=== PATIENT | female | born 1955 | race Caucasian/White ===

== ENCOUNTER 2019-12-21 11:00 | Outpatient (RCR) | payer MEDICARE, SELFPAY ==
--- NOTE | 2019-11-09 11:09 | PTOPEVAL ---
PHYSICAL THERAPY EVALUATION AND PLAN OF CARE 11-09-2019 The PT evaluation was completed today, for the diagnosis of L TKR. Her plan of treatment is 2-3 x/week for 4 weeks. Thank you for referring Sera to [facility]. Please review, sign, date and return this plan of care SOLO. I agree with and certify that the following plan of care is medically necessary. Referring Physician Date Attending Provider: Dr. Edgar Ames *PT Outpatient Evaluation Start: 11/09/19 10:00 Document 11/09/19 09:55 TARA (Rec: 11/09/19 11:09 TARA [email or web address]) Outpatient Past Medical History Neurological History Hx Neurological Disorders No Significant History Cardiovascular History Hx Hypertension Yes: control with meds Respiratory History Hx Asthma Yes Hx Chronic Obstructive Pulmonary Disease Yes (COPD) Hx Pneumonia Yes Hx Other Respiratory Disorders Yes: Former smoker Gastrointestinal History Hx Gastroesophageal Reflux Disease Yes Genitourinary History Hx Genitourinary Disorders No Significant History Musculoskeletal History Hx Joint Replacement Yes: L TKR 10-21-19 Hx Other Musculoskeletal Disorders Yes: B feet/toe surgery Hematological History Hx Hematological Disorders No Significant History Endocrine History Hx Endocrine Disorders No Significant History HEENT History Hx Other HEENT Disorders Yes: 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 Integumentary History Hx Skin Disorders No Significant History Other History Hx Other Medical Conditions Yes: obesity Hx Other Surgeries Yes: kidney stones surgical removal Evaluation Information Problem Diagnosis L TKR Onset 10-21-19 Previous Treatments Previous Treatments For This Problem Home health PT, 3 sessions- completed ~ Nov 03; Prior Level of Function Activity Level (Last 3 Months) Occupation retired Activity of Daily Living Ability Independent Indoor/Home Mobility Independent Community Mobility Independent Stairs Ability Independent Functional Cognition (Planning, Shopping Independent , Taking Medications) Cooking Yes Cleaning Yes Laundry Yes Shopping Yes Driving Yes Home Setting Home Type Multiple Levels Environmental Barriers Stairs, Greater than 4 Living Situation With Spouse Mobility Assistive Devices (Used Last 3 None,Cane,Walker, Wheeled Months) Bathroom Environment Bathtub, Standard Comments Additional Prior Level of Function
--- NOTE | 2019-11-24 09:50 | PCPTNOTE ---
Patient called & cancelled scheduled appointment this date no reason given
--- NOTE | 2019-11-29 13:09 | PTOPEVAL ---
PHYSICAL THERAPY RE-EVALUATION AND UPDATED PLAN OF CARE 11-29-2019 Mrs. Lawrence has received 6 Physical Therapy sessions, from November 09 to today, for the diagnosis of s/p L TKR. She has improved in all areas: increased knee ROM, strength, gait, stair ability; decreased circumferential measurements of knee and progression of exercises at home. Pain rating is the same as initial eval. To continue with PT treatments, 2x/week for 3 weeks, to further increase strength and ROM, with progression of HEP and prepare for discharge. Thank you for referring Sera to [facility]. Please review, sign, date and return this plan of care SOLO. I agree with and certify that the following plan of care is medically necessary. Referring Physician Date Referring Provider: Dr. Edgar Ames *PT Outpatient Re-Evaluation Document 11/29/19 12:39 TARA (Rec: 11/29/19 13:09 TARA [email or web address]) Therapy Assessment Status Assessment Status Problem Subjective Information Sera reports: has been Query Text:As Reported By Patient/ shopping, going out and doing Family more; have over done it a few times, knee hurt more because did too much; more pain at end of day and doing her exercises at home. Pain Assessment Timing of Pain Assessment Timing of Pain Assessment Assessment Pain Scale Pain Scale Used Numeric (1 - 10) Self Report Pain Assessment Left Knee(s) Reported Pain Level 3 Pain Description Aching,Sharp,Tightness Pain Frequency Acute Other Pain Description swollen Current Pain Intensity 3 Lowest Pain Intensity 2 Greatest Pain Intensity 5 Pain Aggravating Factors Exercise/Activity,Weight Bearing/Standing Other Pain Aggravating Factors walk about one hour Other Alleviating Interventions taking meloxicam once/day Pain Score Pain Score 3: Self Report Lower Extremity Range of Motion Knee Range of Motion Left Knee Flexion Range of Motion - Active 100 Knee Flexion Range of Motion - Passive 105 Knee Extension Range of Motion - Active 5 Query Text: Knee Extension Range of Motion - Passive 0 Knee Range of Motion Comments flexion in sitting/ extension in supine Lower Extremity Muscle Strength Testing General Lower Extremity Strength Gross Lower Extremity Strength recumbant bicycle, level 2 resistance, 6 minutes; SLS L x 3 seconds; supine 3# wt: SLR x 20 reps; hip abduct 20 reps; Extremity Circumference Assessment Circumference Assessment Location Left Body Part Knee Site Descriptor ([place]) patella: superior 49.5 cm/ mid
--- NOTE | 2019-12-07 09:53 | PCPTNOTE ---
Patient called & cancelled scheduled appointment this date due to weather.
--- NOTE | 2019-12-21 11:38 | PTOPEVAL ---
PHYSICAL THERAPY DISCHARGE 12-21-2019 Mrs. Lawrence has received 12 Physical Therapy sessions, from November 09 to today, s/p L TKR. She has improved with the ROM and strength of her L knee; walking pattern, stair ability and home exercise progression. The circumferential measurements of her knee are within 1 cm of measurements at the last reevaluation. The PT goals have been achieved, therefore, she will be discharged at this time. Thank you for referring Sera to [facility]. Please review, sign, date and return this discharge SOLO. I agree with and certify that the following plan of care is medically necessary. Referring Physician Date Referring Provider: Dr. Edgar Ames *PT Outpatient Discharge report Document 12/21/19 11:00 TARA (Rec: 12/21/19 11:33 TARA [email or web address]) Subjective Information Sera reports: knee is doing Query Text:As Reported By Patient/ good; only have pain when Family weather is rainy; doing all exercises at home; not using cane anymore; back to doing everything; some swelling in knee after walking 1-2 hours; and agrees to discharge from PT today. Pain Assessment Timing of Pain Assessment Timing of Pain Assessment Assessment Pain Scale Pain Scale Used Numeric (1 - 10) Self Report Pain Assessment Left Knee(s) Reported Pain Level 0 Additional Pain Comments not taking any pain meds; swelling after walking,but goes away with ice,rest Pain Score Pain Score 0: Self Report Lower Extremity Range of Motion Knee Range of Motion Left Knee Flexion Range of Motion - Active 105 Knee Extension Range of Motion - Active 0 Query Text: Lower Extremity Muscle Strength Testing General Lower Extremity Strength Gross Lower Extremity Strength -recumbant bicycle level 2 resistance for 5 min warm up -standing L: 3# ankle wt: hip abduct x 30 reps;knee flexion x25 reps; -SLS x 4 seconds; -supine 3# ankle wt: SLR x 20 reps; -HEP reviewed and upgraded: jacoby theraband for standing exer Extremity Circumference Assessment Circumference Assessment Location Left Body Part Knee Circumference Comments superior patella 49 cm; mid patella 47.5 cm and inferior patella 39 cm Transfer Assessment Chair Transfer Assessment Ambulation Assistive Devices None Sit to Stand Chair Transfer Ability Independent Stand to Sit Chair Transfer A
== END 2019-12-22 09:31 | disposition home or self-care (01) ==
LOC: ANHPT 11:00
DX: Z47.1 Aftercare following joint replacement surgery (principal); Z96.652 Presence of left artificial knee joint
CPT/HCPCS: 29581; 97016; 97022; 97110; 97140; 97161

== ENCOUNTER 2020-01-20 13:42 | Outpatient (RCR) | payer MEDICARE, SELFPAY ==
--- NOTE | 2020-01-20 14:36 | PTOPEVAL ---
PHYSICAL THERAPY EVALUATION/DISCHARGE 01-20-2020 The PT evaluation was completed today for the diagnosis of s/p L TKR. Mrs. Lawrence was here for PT services and was discharged about one month ago. She has continued to perform her home exercises and has increased her activity level. Sera reports that she is independent with all of her home and self care activities. She was not able to identify any problems with her mobility or anything that she is not able to do. The order states knee ROM of 0' to 120'. Her L knee active ROM in sitting is 0'- 105'. She is fully functioning with this range and does not state any concerns or problems. Discussed with her continuing her home exercise program, stretching her knee flexion in sitting and supine positions. Thank you for referring Mrs. Lawrence to [facility]. Please review, sign, date and return this evaluation/discharge SOLO. I agree with and certify that the following plan of care is medically necessary. Referring Physician Date Attending Provider: Dr. Edgar Ames *PT Outpatient Evaluation Document 01/20/20 14:10 TARA (Rec: 01/20/20 14:32 TARA [email or web address]) Outpatient Past Medical History Neurological History Hx Neurological Disorders No Significant History Cardiovascular History Hx Hypertension Yes: control with meds Respiratory History Hx Asthma Yes Hx Chronic Obstructive Pulmonary Disease Yes (COPD) Hx Pneumonia Yes Hx Other Respiratory Disorders Yes: Former smoker Gastrointestinal History Hx Gastroesophageal Reflux Disease Yes Genitourinary History Hx Genitourinary Disorders No Significant History Musculoskeletal History Hx Joint Replacement Yes: L TKR 10-21-19 Hx Other Musculoskeletal Disorders Yes: B feet/toe surgery Hematological History Hx Hematological Disorders No Significant History Endocrine History Hx Endocrine Disorders No Significant History HEENT History Hx Other HEENT Disorders Yes: 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 Integumentary History Hx Skin Disorders No Significant History Other History Hx Other Medical Conditions Yes: obesity Hx Other Surgeries Yes: kidney stones surgical removal Evaluation Information Problem Diagnosis s/p L TKR Onset 10-21-19 Subjective Information per order: knee flexion 120'; Query Text:As Reported By Patient/ Family Previous Treatments Previous Treatments For This Problem completed PT at this facility, with discharge 2-20-20 Prior Level of Function Activity Level (Last 3 Months) Occupation retired Activity of Daily Living Ability Independent Indoor/Home Mobility Independent Community Mobility Independent Stairs Ability Independent Functional Cognition (Planning, Shopping Independent , T
== END 2020-01-23 08:30 | disposition home or self-care (01) ==
LOC: ANHPT 13:42
PROVIDERS: PCP Nurse Practitioner Adult Health; Visit Provider Nurse Practitioner Adult Health
DX: Z47.1 Aftercare following joint replacement surgery (principal); Z96.652 Presence of left artificial knee joint
CPT/HCPCS: 97161

== ENCOUNTER 2021-05-19 14:38 | Emergency (ER) | payer MEDICARE, SELFPAY ==
[2021-05-19 14:49] VITALS: BP 119/73; PULSE 82; RESP 16; TEMP 36.9; O2SAT 98
--- NOTE | 2021-05-19 15:18 | ED.PEDHENT ---
HPI - Pediatric HENT General Chief complaint: Upper Respiratory Infection Stated complaint: sore throat Source: patient and RN notes reviewed Limitations: no limitations History of Present Illness HPI Narrative: The vaccinated overweight patient, ex-smoker/nondrinker on several medications, presents with nasal pain. Patient states she has 'possible sinusitis' manifested by half week history frontal/sinus headache, and definite right nasal tenderness and asociated scant swelling. No fever, tooth ache, diplopia, discharge, hypesthesia/numbness, visible rash; symptoms are mild, worse with direct palpation including touching her right nose internally. Family members have a history of facial impetigo; she is advised go to [facility] if not improved Related Data Home Medications Medication Instructions Recorded Confirmed alprazolam 09/28/19 05/08/21 escitalopram oxalate mg 09/28/19 05/08/21 losartan 09/28/19 05/08/21 fluticasone propion-salmeterol INHALATION 05/19/21 [Wixela Inhub] nystatin TOPICAL 05/19/21 omeprazole 05/19/21 Allergies Allergy/AdvReac Type Severity Reaction Status Date / Time Aminoglycosides Allergy Severe SWELLING Verified 05/08/21 10:21 AND BLISTERS neomycin Allergy Severe SWELLING Verified 05/08/21 10:21 AND BLISTERS bacitracin Allergy Unknown Unknown Verified 05/08/21 10:21 enalapril Allergy Unknown Unknown Verified 05/08/21 10:21 hydrocortisone Allergy Unknown Unknown Verified 05/08/21 10:21 lisinopril Allergy Unknown Unknown Verified 05/08/21 10:21 polymyxin B Allergy Unknown Unknown Verified 05/08/21 10:21 trazodone Allergy Unknown Unknown Verified 05/08/21 10:21 venlafaxine Allergy Unknown Unknown Verified 05/08/21 10:21 vilazodone Allergy Unknown Unknown Verified 05/08/21 10:21 Pediatric Review of Systems Review of Systems: General/Constitutional: No weight loss,fever Eyes: N0: Redness,discharge Ears/Nose/Throat: No: Epistaxis,ear discharge Respiratory: Denies: Hemoptysis Gastrointestinal: No Vomiting, Bleeding-rectal Skin: No Lumps, eruption Neurologic: No Focal Weakness,Sz Hematologic: Denies: Petechiae/Purpura Psychiatric: No: Suicida ideationl All Other Systems: Reviewed and Negative PMF Past Medical History Medical History Asthma Essential hypertension Former smoker Patient quit 35 years ago. She smoked for 10 years 1 pack per day History of asthma History of cataract Hypertension Rhinitis Seasonal allergic rhinitis Sleep disturbance Snoring Surgical History Surgical History History of knee surgery Family History Family History Father Diabetes mellitus Patient's father is in good health Sibling Malignant neoplasm of prostate, Onset Age: 65 Mother Family history of lung cancer, Onset Age: 54 Social History Social History Smoking packs per day: 0.5 Smoking cigarettes per day: 10.0 Years smoked: 7 Smoking pack-years: 3.50 Smoking status: Former smoker Tobacco type: cigarettes Second hand tobacco smoke exposure: No Smoking end date: 11/02/82 Additional smoking assessment comments: started smoking at age 14 Alcohol intake: never Comments At time of signature, agree with nursing past medical, surgical, social and family history. There is no relevant family history pertinent to the presenting complaint Pediatric Exam Narrative: Physical exam: General Appearance: Well appearing, obese/well nourished, EYE: PERRLA, EOMI Ears: External ear normal, Auditory canal normal Nose: Slightly asymmetric/swollen right nose , Nares clear-no vesicles, discharge, etc. Mouth/Throat: Normal appearing, Normal lips Neck: Supple, No adenopathy Respiratory: Airway patent, No respiratory distress Ski
== END 2021-05-19 15:27 | disposition home or self-care (01) ==
PROVIDERS: Emergency Provider Emergency Medicine; PCP Nurse Practitioner Adult Health
DX: J32.9 Chronic sinusitis, unspecified (principal); Z87.891 Personal history of nicotine dependence; J45.909 Unspecified asthma, uncomplicated; H26.9 Unspecified cataract
CPT/HCPCS: 99213; G0463

== ENCOUNTER 2021-06-05 09:45 | Outpatient (CLI) | payer MEDICARE, SELFPAY ==
--- NOTE | ~2021-06-05 | US_ITS ---
EXAMINATION: US venous doppler LE RT DATE: 06/05/2021 10:20 INDICATION: Right lower limb pain. TECHNIQUE: Grayscale ultrasound images without and with compression and Doppler ultrasound images of the right lower extremity veins were obtained. COMPARISON: None. FINDINGS: The visualized portions of right common femoral vein, profunda (deep) femoral vein, femoral vein, pop liteal vein, peroneal trunk, posterior tibial veins, peroneal veins, gastrocnemius vein and greater s aphenous vein outflow are patent. No abnormal masses or fluid collections identified at the site of a reported dog bite. IMPRESSION: 1. No deep venous thrombosis in the right lower limb. 2. No fluid collections at the site of the reported dogbite to suggest hematoma or abscess. Reviewed, dictated and finalized at location A.
== END 2021-06-05 09:46 | disposition home or self-care (01) ==
PROVIDERS: PCP Nurse Practitioner Adult Health; Visit Provider Nurse Practitioner Adult Health
DX: M79.661 Pain in right lower leg (principal)
CPT/HCPCS: 93971

== ENCOUNTER → 2021-10-29 11:40 | Outpatient (CLI) | payer MEDICARE, SELFPAY ==
--- NOTE | ~2021-10-29 | CT_ITS ---
EXAMINATION: CT sinus wo con DATE: 10/29/2021 11:53 INDICATION: Chronic sinusitis TECHNIQUE: Computed tomography (CT) of the paranasal sinuses was performed without intravenous contra st. The dose-length product (DLP) was 254.35 mGy-cm. Iterative reconstruction was used. COMPARISON: None FINDINGS: There is normal development and pneumatization of the paranasal sinuses. The frontal, sphen oid, ethmoid, and maxillary sinuses are clear. The bilateral ostiomeatal complexes are patent. Visual ized soft tissues are unremarkable. There is frontal skull hyperostosis (hyperostosis frontalis inter na), a normal variant. IMPRESSION: 1. Unremarkable sinuses. Reviewed, dictated and finalized at location F. IFF OFFICER IMPRESSION: 1. Unremarkable sinuses.
== END ==
PROVIDERS: PCP Nurse Practitioner Adult Health; Visit Provider Otolaryngology
DX: J32.9 Chronic sinusitis, unspecified (principal); M85.2 Hyperostosis of skull
CPT/HCPCS: 70486

== ENCOUNTER 2021-12-07 14:47 | Emergency (ER) | payer MEDICARE, SELFPAY ==
--- NOTE | ~2021-12-07 | XR_ITS ---
EXAMINATION: XR wrist RT min 3V EXAM DATE: 12/07/2021 15:02 INDICATION: fall, rt wrist pain, medial side pain . TECHNIQUE: Right wrist frontal, frontal with ulnar deviation, oblique and lateral projections obtain ed and reviewed. There is no prior study for comparison. FINDINGS: Right wrist scapholunate joint space is maintained. There are no acute fractures or disloca tions identified. There is no subcutaneous gas. The soft tissue is unremarkable. There are no rad iopaque foreign bodies. There is moderate 1st carpometacarpal joint primary osteoarthritis. IMPRESSION: 1. XR wrist RT min 3V exam without acute osseous findings. Reviewed, dictated and finalized at location G. ULA CHECKER
--- NOTE | 2021-12-07 14:50 | ED.UPPEXIN ---
HPI - Extremity Injury (Upper) General Chief Complaint: Extremity Injury, Upper Stated Complaint: Right Wrist Pain Time Seen by Provider: 12/07/21 14:56 Source: patient, family, RN notes reviewed and old records reviewed Mode of arrival: ambulatory Limitations: no limitations History of Present Illness HPI narrative: 66-year-old female presents to the [facility] with right ulnar aspect wrist pain for approximately 1 week. Patient states that she was in the basement and fell. Thinks she stretched out her arm. Minor swelling noted no bruising. Tender along the distal aspect of the ulnar. Capillary refill distal to injury under 2 seconds. Sensation intact. Does have full range of motion. Strong core cutter and reamer noted. Denies hitting head. no loss of consciousness. Denies back pain. MD complaint: injury to: right and wrist Related Data Home Medications Medication Instructions Recorded Confirmed alprazolam 09/28/19 11/22/21 escitalopram oxalate mg 09/28/19 11/22/21 losartan 09/28/19 11/22/21 omeprazole 05/19/21 11/22/21 phentermine mg 12/07/21 Allergies Allergy/AdvReac Type Severity Reaction Status Date / Time Aminoglycosides Allergy Severe SWELLING Verified 12/07/21 14:55 AND BLISTERS neomycin Allergy Severe SWELLING Verified 12/07/21 14:55 AND BLISTERS bacitracin Allergy Unknown Unknown Verified 12/07/21 14:55 enalapril Allergy Unknown Unknown Verified 12/07/21 14:55 hydrocortisone Allergy Unknown Unknown Verified 12/07/21 14:55 lisinopril Allergy Unknown Unknown Verified 12/07/21 14:55 polymyxin B Allergy Unknown Unknown Verified 12/07/21 14:55 trazodone Allergy Unknown Unknown Verified 12/07/21 14:55 venlafaxine Allergy Unknown Unknown Verified 12/07/21 14:55 vilazodone Allergy Unknown Unknown Verified 12/07/21 14:55 Review of Systems Review of Systems: All systems reviewed & are unremarkable except as noted in HPI and below Constitutional: Constitutional: Reports no additional constitutional complaints, Denies chills, Denies fever(s), Denies headache(s) and Denies weakness Eyes: Eyes: Reports no additional eye complaints ENT: Reports system reviewed and no additional complaints, except as documented, Denies vertigo, Denies dizziness and Denies headache(s) Cardiovascular: Cardiovascular: Reports no additional cardiovascular complaints, Denies chest pain, Denies syncope and Denies dyspnea Respiratory: Respiratory: Reports no additional respiratory complaints, Denies cough and Denies dyspnea Gastrointestinal: Gastrointestinal: Reports no additional gastrointestinal complaints, Denies abdominal pain, Denies nausea and Denies vomiting Musculoskeletal: Musculoskeletal: Reports as per HPI, Reports arthralgias (Right wrist), Denies joint swelling and Denies numbness Integumentary/Breasts: Skin/Breast: Reports system reviewed and no additional complaints, except as docu Neurologic: Reports system reviewed and no additional complaints, except as documented, Denies confusion, Denies vertigo, Denies dizziness, Denies syncope, Denies headache(s), Denies focal weakness, Denies numbness and Denies weakness Psychiatric: Psychiatric: Reports no additional psychiatric complaints and Denies confusion Allergic/Immunologic: Allergic/Immunologic: Reports no additional allergic/immunologic complaints PMFSH Past Medical History Medical History Asthma Essential hypertension Former smoker Patient quit 35 years ago. She smoked for 10 years 1 pack per day History of asthma History of cataract Hypertension Rhinitis Seasonal allergic rhinitis Sleep disturbance Snoring Surgical History Surgical History History of knee surgery Family History Family History Father Diabetes mellitus Patient's father is in good health Sibling Malignant neoplasm of prostate, Onset Age:
[2021-12-07 14:59] VITALS: BP 132/82; PULSE 84; RESP 18; TEMP 36.6; O2SAT 98
== END 2021-12-07 15:18 | disposition home or self-care (01) ==
PROVIDERS: Emergency Provider Nurse Practitioner; PCP Nurse Practitioner Adult Health
DX: S63.501A Unspecified sprain of right wrist, initial encounter (principal); W19.XXXA Unspecified fall, initial encounter; M18.11 Unilateral primary osteoarthritis of first carpometacarpal joint, right hand; Z87.891 Personal history of nicotine dependence; J45.909 Unspecified asthma, uncomplicated; I10 Essential (primary) hypertension; H26.9 Unspecified cataract
CPT/HCPCS: 73110; 99213; G0463

== ENCOUNTER 2022-08-07 10:45 | Emergency (ER) | payer MEDICARE, SELFPAY ==
--- NOTE | 2022-08-07 10:51 | ED.GENADULT ---
HPI - General Adult General Chief complaint: Upper Respiratory Infection Stated complaint: Headache,Eyes Irritation, Multiple Complaints Time Seen by Provider: 08/07/22 10:55 Source: patient, RN notes reviewed and old records reviewed Mode of arrival: ambulatory Limitations: no limitations History of Present Illness HPI narrative: 67-year-old female presents to the [facility] with multiple complaints. Patient is complaining of eye and sinus pressure. Frontal headache. Patient states they all started on Thursday, 3 days ago. Has tried Coricidin with no improvement. MD complaint: sinus pain Related Data Home Medications Medication Instructions Recorded Confirmed alprazolam 0.25 mg tablet 0.25 mg PO DIRECTED 09/28/19 08/07/22 escitalopram oxalate 10 mg tablet 10 mg PO DAILY 09/28/19 08/07/22 losartan 50 mg tablet 50 mg PO DAILY 09/28/19 08/07/22 omeprazole 40 mg capsule,delayed 40 mg PO DAILY 05/19/21 08/07/22 release ipratropium 0.5 mg-albuterol 3 mg 3 ml inhalation QID PRN Dyspnea 05/23/22 08/07/22 (2.5 mg base)/3 mL nebulization soln Allergies Allergy/AdvReac Type Severity Reaction Status Date / Time Aminoglycosides Allergy Severe SWELLING Verified 08/07/22 10:49 AND BLISTERS neomycin Allergy Severe SWELLING Verified 08/07/22 10:49 AND BLISTERS bacitracin Allergy Unknown Unknown Verified 08/07/22 10:49 enalapril Allergy Unknown Unknown Verified 08/07/22 10:49 lisinopril Allergy Unknown Unknown Verified 08/07/22 10:49 polymyxin B Allergy Unknown Unknown Verified 08/07/22 10:49 trazodone Allergy Unknown Unknown Verified 08/07/22 10:49 venlafaxine Allergy Unknown Unknown Verified 08/07/22 10:49 vilazodone Allergy Unknown Unknown Verified 08/07/22 10:49 Review of Systems Review of Systems: All systems reviewed & are unremarkable except as noted in HPI and below Constitutional: Constitutional: Reports no additional constitutional complaints, Denies chills and Denies fever(s) Eyes: Eyes: Reports no additional eye complaints ENT: Reports as per HPI, Denies vertigo, Denies dizziness, Reports nasal congestion, Reports nasal discharge, Reports sinus pain and Reports sinus pressure Cardiovascular: Cardiovascular: Reports no additional cardiovascular complaints Respiratory: Respiratory: Reports no additional respiratory complaints Gastrointestinal: Gastrointestinal: Reports no additional gastrointestinal complaints Musculoskeletal: Musculoskeletal: Reports no additional musculoskeletal complaints Integumentary/Breasts: Skin/Breast: Reports system reviewed and no additional complaints, except as docu Neurologic: Reports system reviewed and no additional complaints, except as documented Psychiatric: Psychiatric: Reports no additional psychiatric complaints Allergic/Immunologic: Allergic/Immunologic: Reports no additional allergic/immunologic complaints PMFSH Past Medical History Medical History Asthma Essential hypertension Former smoker Patient quit 35 years ago. She smoked for 10 years 1 pack per day History of asthma History of cataract Hypertension Rhinitis Seasonal allergic rhinitis Sleep disturbance Snoring Surgical History Surgical History History of knee surgery Family History Family History Father Diabetes mellitus Patient's father is in good health Sibling Malignant neoplasm of prostate, Onset Age: 65 Mother Family history of lung cancer, Onset Age: 54 Social History Social History Smoking packs per day: 0.5 Smoking cigarettes per day: 10.0 Years smoked: 7 Smoking pack-years: 3.50 Smoking status: Former smoker Tobacco type: cigarettes Second hand tobacco smoke exposure: No Smoking end date: 11/02/82 Additional smoking
[2022-08-07 10:55] VITALS: BP 131/75; PULSE 74; RESP 18; TEMP 36.1; O2SAT 98
== END 2022-08-07 11:27 | disposition home or self-care (01) ==
PROVIDERS: Emergency Provider Nurse Practitioner; PCP Nurse Practitioner Adult Health
DX: J01.10 Acute frontal sinusitis, unspecified (principal); H65.03 Acute serous otitis media, bilateral; Z20.822 Contact with and (suspected) exposure to COVID-19; J45.909 Unspecified asthma, uncomplicated; I10 Essential (primary) hypertension; Z87.891 Personal history of nicotine dependence
CPT/HCPCS: 87426; 87804; 99213; C9803; G0463

== ENCOUNTER 2022-08-12 16:03 | Emergency (ER) | payer MEDICARE, SELFPAY ==
--- NOTE | ~2022-08-12 | XR_ITS ---
EXAMINATION: XR chest 2V DATE: 08/12/2022 17:03 INDICATION: Cough and congestion TECHNIQUE: AP and lateral views of the chest are obtained. COMPARISON: 09/28/2019 FINDINGS: There are minimal airspace opacities of the lung bases. No pleural effusion or pneumothorax . The cardiomediastinal silhouette is normal. There is moderate thoracic spondylosis. IMPRESSION: 1. Minimal bibasilar airspace opacities, consistent with atelectasis versus pneumonia. Reviewed, dictated and finalized at location A. IMPRESSION: 1. Minimal bibasilar airspace opacities, consistent with atelectasis versus pne umonia.
[2022-08-12 16:13] VITALS: BP 123/95; PULSE 87; RESP 20; TEMP 36.4; O2SAT 99
--- NOTE | 2022-08-12 17:29 | ED.URI ---
HPI - URI/Sore Throat General Chief Complaint: Upper Respiratory Infection Stated Complaint: chest tightness, coughing Time Seen by Provider: 08/12/22 17:31 Source: patient, RN notes reviewed and old records reviewed Mode of arrival: ambulatory Limitations: no limitations History of Present Illness HPI Narrative: 67 year old female presents to [facility] care with increased cough with some tightness to her chest with cough making it hard to take a deep breath. Patient was seen on the and treated with Augmentin Flonase,medrol dose pack and was improving till last evening. Patient does have a nebulizer but has not been using it, has history of asthma and COPD.Patient has been COVID vaccinated. Patient has no noted tachypnea with SAO2 99% on room air. MD elicited complaint: cough Pertinent past history: COPD and asthma Onset (ago): day(s) (1) Treatments prior to arrival: antibiotics and other (medrol dose pack completed and flonase) Related Data Home Medications Medication Instructions Recorded Confirmed alprazolam 0.25 mg tablet 0.25 mg PO DIRECTED 09/28/19 08/12/22 escitalopram oxalate 10 mg tablet 10 mg PO DAILY 09/28/19 08/12/22 losartan 50 mg tablet 50 mg PO DAILY 09/28/19 08/12/22 omeprazole 40 mg capsule,delayed 40 mg PO DAILY 05/19/21 08/12/22 release ipratropium 0.5 mg-albuterol 3 mg 3 ml inhalation QID PRN Dyspnea 05/23/22 08/12/22 (2.5 mg base)/3 mL nebulization soln Allergies Allergy/AdvReac Type Severity Reaction Status Date / Time Aminoglycosides Allergy Severe SWELLING Verified 08/07/22 10:49 AND BLISTERS neomycin Allergy Severe SWELLING Verified 08/07/22 10:49 AND BLISTERS bacitracin Allergy Unknown Unknown Verified 08/07/22 10:49 enalapril Allergy Unknown Unknown Verified 08/07/22 10:49 lisinopril Allergy Unknown Unknown Verified 08/07/22 10:49 polymyxin B Allergy Unknown Unknown Verified 08/07/22 10:49 trazodone Allergy Unknown Unknown Verified 08/07/22 10:49 venlafaxine Allergy Unknown Unknown Verified 08/07/22 10:49 vilazodone Allergy Unknown Unknown Verified 08/07/22 10:49 Review of Systems Review of Systems: CONSTITUTIONAL: Denies malaise, chills, sweats, or fever. EYES: Denies visual changes, redness, or discharge. ENT: Reports rhinorrhea, congestion,no sinus pain, otalgia or sore throat. CARDIOVASCULAR: Denies chest pain, palpitations, or edema. RESPIRATORY: Reports cough.?Reports tightness to chest with deep breathing has not used her nebulizer GASTROINTESTINAL: Denies abdominal pain, nausea, vomiting, diarrhea SKIN: Denies rash or itching. MUSCULOSKELETAL: Denies myalgia. NEUROLOGIC: Denies headache. All systems reviewed & are unremarkable except as noted in HPI and below PMFSH Past Medical History Medical History Asthma Essential hypertension Former smoker Patient quit 35 years ago. She smoked for 10 years 1 pack per day History of asthma History of cataract Hypertension Rhinitis Seasonal allergic rhinitis Sleep disturbance Snoring Surgical History Surgical History History of knee surgery Family History Family History Father Diabetes mellitus Patient's father is in good health Sibling Malignant neoplasm of prostate, Onset Age: 65 Mother Family history of lung cancer, Onset Age: 54 Social History Social History Smoking packs per day: 0.5 Smoking cigarettes per day: 10.0 Years smoked: 7 Smoking pack-years: 3.50 Smoking status: Former smoker Tobacco type: cigarettes Second hand tobacco smoke exposure: No Smoking end date: 11/02/82 Additional smoking assessment comments: started smoking at age 14 Alcohol intake: never Comments At time of signature, agree with nursing past medical, surgic
== END 2022-08-12 17:53 | disposition home or self-care (01) ==
PROVIDERS: Emergency Provider Registered Nurse; PCP Nurse Practitioner Adult Health
DX: J18.1 Lobar pneumonia, unspecified organism (principal); Z20.822 Contact with and (suspected) exposure to COVID-19; Z87.891 Personal history of nicotine dependence; J45.909 Unspecified asthma, uncomplicated; I10 Essential (primary) hypertension
CPT/HCPCS: 71046; 87426; 87804; 99213; C9803; G0463

== ENCOUNTER 2022-10-01 16:29 | Emergency (ER) | payer MEDICARE, SELFPAY ==
--- NOTE | ~2022-10-01 | XR_ITS ---
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 RESULT: Lines, tubes, and devices: None. Lungs and pleura: Streaky bibasilar opacities, similar to the prior. Low lung volumes in the lateral view. Cardiomediastinal silhouette: Stable. Other: No acute osseous or upper abdominal finding. IMPRESSION: Limited lateral view. Likely bibasilar atelectasis/scar. Infection not excluded. Reviewed, dictated and finalized at location K. NICAL SUPPORT ASSISTANT IMPRESSION: Limited lateral view. Likely bibasilar atelectasis/scar. Infection not excluded .
[2022-10-01 16:49] VITALS: BP 132/72; PULSE 92; RESP 16; TEMP 37.1; O2SAT 99
--- NOTE | 2022-10-01 18:42 | ED.URI ---
HPI - URI/Sore Throat General Chief Complaint: Upper Respiratory Infection Stated Complaint: cough Time Seen by Provider: 10/01/22 18:42 Source: patient, RN notes reviewed and old records reviewed Mode of arrival: ambulatory Limitations: no limitations History of Present Illness HPI Narrative: 67 year old female who presents to [facility] care with complaints of acute cough for the past 3 days with increased shortness and breath and wheezing voiced with some chills but no acute fevers. Patient reports that she has been using her nebulizer with last treatment at 1400 today, she has also been taking Robitussin DM with no improvement. Patient reports that she has been COVID vaccinated and also has had COVID. MD elicited complaint: cough (increased) and other (Wheezing) Pertinent past history: pneumonia, COPD and asthma Onset (ago): day(s) (days) Related Data Home Medications Medication Instructions Recorded Confirmed alprazolam 0.25 mg tablet 0.25 mg PO DIRECTED 09/28/19 08/12/22 escitalopram oxalate 10 mg tablet 10 mg PO DAILY 09/28/19 08/12/22 losartan 50 mg tablet 50 mg PO DAILY 09/28/19 08/12/22 omeprazole 40 mg capsule,delayed 40 mg PO DAILY 05/19/21 08/12/22 release ipratropium 0.5 mg-albuterol 3 mg 3 ml inhalation QID PRN Dyspnea 05/23/22 08/12/22 (2.5 mg base)/3 mL nebulization soln Allergies Allergy/AdvReac Type Severity Reaction Status Date / Time Aminoglycosides Allergy Severe SWELLING Verified 10/01/22 17:54 AND BLISTERS neomycin Allergy Severe SWELLING Verified 10/01/22 17:54 AND BLISTERS bacitracin Allergy Unknown Unknown Verified 10/01/22 17:54 enalapril Allergy Unknown Unknown Verified 10/01/22 17:54 lisinopril Allergy Unknown Unknown Verified 10/01/22 17:54 polymyxin B Allergy Unknown Unknown Verified 10/01/22 17:54 trazodone Allergy Unknown Unknown Verified 10/01/22 17:54 venlafaxine Allergy Unknown Unknown Verified 10/01/22 17:54 vilazodone Allergy Unknown Unknown Verified 10/01/22 17:54 Review of Systems Review of Systems: CONSTITUTIONAL: Denies fever,states chills, no sweats. EYES: Denies visual changes, redness, or discharge. ENT: reports some clear rhinorrhea, congestion, no sore throat, or otalgia. CARDIOVASCULAR: Denies chest pain, palpitations, or edema. RESPIRATORY: Reports cough with increased dyspnea. GASTROINTESTINAL: Denies abdominal pain, nausea, vomiting, or diarrhea. GENITOURINARY: Denies dysuria or hematuria. SKIN: Denies rash or itching. MUSCULOSKELETAL: Denies back pain, joint pain, or myalgia. NEUROLOGIC: Denies headache, numbness, or weakness. PSYCHIATRIC: Reports anxiety or depression. All systems reviewed & are unremarkable except as noted in HPI and below PMFSH Past Medical History Medical History Asthma Essential hypertension Former smoker Patient quit 35 years ago. She smoked for 10 years 1 pack per day History of asthma History of cataract Hypertension Rhinitis Seasonal allergic rhinitis Sleep disturbance Snoring Surgical History Surgical History History of knee surgery Family History Family History Father Diabetes mellitus Patient's father is in good health Sibling Malignant neoplasm of prostate, Onset Age: 65 Mother Family history of lung cancer, Onset Age: 54 Social History Social History Smoking packs per day: 0.5 Smoking cigarettes per day: 10.0 Years smoked: 7 Smoking pack-years: 3.50 Smoking status: Former smoker Tobacco type: cigarettes Second hand tobacco smoke exposure: No Smoking end date: 11/02/82 Additional smoking assessment comments: started smoking at age 14 Alcohol intake: never Comments At time of signature, agree with nursing past medical, surgical, social and fam
[2022-10-01 18:49] VITALS: BP 132/72; PULSE 92; RESP 16; TEMP 37.1; O2SAT 99
[2022-10-01] MEDS: ALBUTEROL SULFATE NEB 2.5 MG/3 ML INH INHALATION (19:03)
[2022-10-01] MEDS: IPRATROPIUM BR 0.02% INH SOLN 0.5 MG/2.5 ML VIAL INHALATION (19:04)
== END 2022-10-01 19:55 | disposition home or self-care (01) ==
PROVIDERS: Emergency Provider Registered Nurse
DX: J06.9 Acute upper respiratory infection, unspecified (principal); Z87.891 Personal history of nicotine dependence; I10 Essential (primary) hypertension; H26.9 Unspecified cataract
CPT/HCPCS: 71046; 94640; 99213; G0463

== ENCOUNTER 2022-10-13 09:43 | Outpatient (CLI) | payer MEDICARE, SELFPAY | END 2022-10-13 09:44 | disposition home or self-care (01) | PROVIDERS: Visit Provider Physician Assistant | DX: J18.9 Pneumonia, unspecified organism (principal); J44.9 Chronic obstructive pulmonary disease, unspecified | CPT/HCPCS: 87070; 87205 ==

== ENCOUNTER 2022-11-14 15:39 | Outpatient (CLI) | payer MEDICARE, SELFPAY ==
[2022-11-14 16:24] LABS: Influenza A QL RT-PCR Negative (Negative); Influenza B QL RT-PCR Negative (Negative); RSV RNA, RT-PCR Negative (Negative); SARS-CoV-2 RNA PCR Negative
== END 2022-11-14 15:40 | disposition home or self-care (01) ==
PROVIDERS: Visit Provider Physician Assistant
DX: U07.1 COVID-19 (principal)
CPT/HCPCS: 87637

== ENCOUNTER 2023-01-20 13:22 | Outpatient (CLI) | payer MEDICARE, SELFPAY ==
--- NOTE | ~2023-01-20 | US_ITS ---
EXAMINATION: US venous doppler [facility] DATE: 01/20/2023 14:09 INDICATION: Lower limb swelling TECHNIQUE: Grayscale ultrasound images without and with compression and Doppler ultrasound images of the bilateral lower extremity veins were obtained. COMPARISON: None. FINDINGS: The visualized portions of right common femoral vein, profunda (deep) femoral vein, femoral vein, pop liteal vein, posterior tibial veins, peroneal veins, gastrocnemius vein and greater saphenous vein ou tflow are patent. The visualized portions of left common femoral vein, profunda femoral vein, femoral vein, popliteal v ein, posterior tibial veins, peroneal veins, gastrocnemius vein and greater saphenous vein outflow ar e patent. IMPRESSION: 1. No deep venous thrombosis in either lower limb. Reviewed, dictated and finalized at location A.
== END 2023-01-20 13:23 | disposition home or self-care (01) ==
PROVIDERS: PCP Nurse Practitioner Family; Visit Provider Physician Assistant
DX: R60.0 Localized edema (principal)
CPT/HCPCS: 93970

== ENCOUNTER 2023-07-12 14:04 | Emergency (ER) | payer MEDICARE, SELFPAY ==
[2023-07-12 15:04] VITALS: BP 133/93; PULSE 78; RESP 16; TEMP 36.6; O2SAT 100
--- NOTE | 2023-07-12 15:42 | ED.FEMALEGU ---
HPI - Female Genitourinary General Chief complaint: Urogenital-Female Stated complaint: Female Urogenital and Cough Time Seen by Provider: 07/12/23 15:35 Source: patient and RN notes reviewed Mode of arrival: ambulatory Limitations: no limitations History of Present Illness HPI Narrative: Patient presents today complaining of 3 day history of low back pain, dysuria, frequency. She rates her back pain 8/10 and has been taking ibuprofen with some relief. She also complains of a 4 to five-day history of cough, headache, chills, and mild shortness of breath. She has been using her nebulizer treatment and inhalers, which do help with the shortness of breath. History of COPD. Related Data Home Medications Medication Instructions Recorded Confirmed escitalopram oxalate 10 mg tablet 10 mg PO DAILY 09/28/19 07/12/23 losartan 50 mg tablet 50 mg PO DAILY 09/28/19 07/12/23 omeprazole 40 mg capsule,delayed 40 mg PO DAILY 05/19/21 07/12/23 release fluticasone propionate 50 1 spray intranasal BID 03/19/23 07/12/23 mcg/actuation nasal spray,suspension (Flonase Allergy Relief) loratadine 10 mg tablet (Claritin) 10 mg PO DAILY 03/19/23 07/12/23 Allergies Allergy/AdvReac Type Severity Reaction Status Date / Time Aminoglycosides Allergy Severe SWELLING Verified 07/12/23 15:05 AND BLISTERS neomycin Allergy Severe SWELLING Verified 07/12/23 15:05 AND BLISTERS bacitracin Allergy Unknown Unknown Verified 07/12/23 15:05 enalapril Allergy Unknown Unknown Verified 07/12/23 15:05 lisinopril Allergy Unknown Unknown Verified 07/12/23 15:05 polymyxin B Allergy Unknown Unknown Verified 07/12/23 15:05 trazodone Allergy Unknown Unknown Verified 07/12/23 15:05 venlafaxine Allergy Unknown Unknown Verified 07/12/23 15:05 vilazodone Allergy Unknown Unknown Verified 07/12/23 15:05 Review of Systems Review of Systems: CONSTITUTIONAL: Denies body aches, fever, or sweats.+ chills EYES: Denies visual changes, redness, or discharge. ENT: Denies rhinorrhea, congestion, sore throat, or otalgia. CARDIOVASCULAR: Denies chest pain, palpitations, or edema. RESPIRATORY: + cough, shortness of breath GASTROINTESTINAL: Denies abdominal pain, nausea, vomiting, or diarrhea. GENITOURINARY:+ dysuria, frequency SKIN: Denies rash, itching, or wounds. MUSCULOSKELETAL: Denies joint pain, or myalgia.+ low back pain NEUROLOGIC: Denies numbness, tingling, or weakness.+ headache PSYCH: Denies depression or anxiety. [facility] Past Medical History Medical History Anxiety Asthma BMI 40.0-44.9, adult BMI 45.0-49.9, adult Elevated fasting glucose Essential hypertension Former smoker Patient quit 35 years ago. She smoked for 10 years 1 pack per day GERD (gastroesophageal reflux disease) History of asthma History of cataract Hypertension GREGG on CPAP Pneumonia Prediabetes Rhinitis Seasonal allergic rhinitis Sleep disturbance Snoring Surgical History Surgical History History of knee surgery Family History Family History Father Diabetes mellitus Patient's father is in good health Sibling Malignant neoplasm of prostate, Onset Age: 65 Mother Family history of lung cancer, Onset Age: 54 Social History Social History Smoking packs per day: 0.5 Smoking cigarettes per day: 10.0 Years smoked: 7 Smoking pack-years: 3.50 Smoking status: Former smoker Tobacco type: cigarettes Second hand tobacco smoke exposure: No Smoking end date: 11/02/82 Additional smoking assessment comments: started smoking at age 14 Alcohol intake: never Substance use: never Substance use type: does not use Lack of Transportation: No Lack of Food: Never True Current Housing: I Have Housing C
== END 2023-07-12 15:59 | disposition home or self-care (01) ==
PROVIDERS: Emergency Provider Nurse Practitioner; PCP Nurse Practitioner Family
DX: J45.901 Unspecified asthma with (acute) exacerbation (principal); J44.9 Chronic obstructive pulmonary disease, unspecified; B34.9 Viral infection, unspecified; N30.01 Acute cystitis with hematuria; I10 Essential (primary) hypertension; Z87.891 Personal history of nicotine dependence; Z20.822 Contact with and (suspected) exposure to COVID-19; Z79.899 Other long term (current) drug therapy
CPT/HCPCS: 81003; 87077; 87086; 87186; 87426; 99213; C9803; G0463

== ENCOUNTER 2023-11-01 14:42 | Emergency (ER) | payer MEDICARE, SELFPAY ==
--- NOTE | ~2023-11-01 | XR_ITS ---
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 RESULT: Lines, tubes, and devices: None. Lungs and pleura: Streaky bibasilar opacities, similar to the prior. Nodular opacity projecting over a lower lobe seen only in the lateral view Cardiomediastinal silhouette: Stable. Other: No acute osseous or upper abdominal finding. IMPRESSION: Nodular lower lobe opacity may represent atelectasis or infection. Recommend radiographic follow-up t o ensure resolution. Bibasilar scar/atelectasis. Reviewed, dictated and finalized at location K. AL WORK MANAGER IMPRESSION: Nodular lower lobe opacity may represent atelectasis or infection. Recommend ra diographic follow-up to ensure resolution. Bibasilar scar/atelectasis.
--- NOTE | 2023-11-01 14:55 | ED.URI ---
HPI - URI/Sore Throat General Chief Complaint: Upper Respiratory Infection Stated Complaint: cough,headache,ears clogged Time Seen by Provider: 11/01/23 14:56 Source: patient Mode of arrival: ambulatory Limitations: no limitations History of Present Illness HPI Narrative: Sera is a 68-year-old female patient presenting to the clinic today with complaints of cough, headache, and bilateral ear congestion x4 days. She reports no fever or chills. Does have history of COPD with interstitial lung disease. Does report shortness breath increased. Has not taken her breathing treatments this morning. MD elicited complaint: cough, nasal congestion and other (Shortness of breath, bilateral ear pain) Related Data Home Medications Medication Instructions Recorded Confirmed fluticasone propionate 50 1 spray intranasal BID 03/19/23 11/01/23 mcg/actuation nasal spray,suspension (Flonase Allergy Relief) Allergies Allergy/AdvReac Type Severity Reaction Status Date / Time Aminoglycosides Allergy Severe SWELLING Verified 11/01/23 15:02 AND BLISTERS neomycin Allergy Severe SWELLING Verified 11/01/23 15:02 AND BLISTERS bacitracin Allergy Unknown Unknown Verified 11/01/23 15:02 enalapril Allergy Unknown Unknown Verified 11/01/23 15:02 lisinopril Allergy Unknown Unknown Verified 11/01/23 15:02 polymyxin B Allergy Unknown Unknown Verified 11/01/23 15:02 trazodone Allergy Unknown Unknown Verified 11/01/23 15:02 venlafaxine Allergy Unknown Unknown Verified 11/01/23 15:02 vilazodone Allergy Unknown Unknown Verified 11/01/23 15:02 Review of Systems Review of Systems: Pertinent positives per HPI. Patient denies any fever, chills, rash, headache, visual changes, dizziness, cough, shortness of breath, chest pain, palpitations, nausea, vomiting, diarrhea, constipation, abdominal pain, or any urinary issues. [facility] Past Medical History Medical History Anxiety Asthma BMI 40.0-44.9, adult BMI 45.0-49.9, adult Elevated fasting glucose Essential hypertension Former smoker Patient quit 35 years ago. She smoked for 10 years 1 pack per day GERD (gastroesophageal reflux disease) History of asthma History of cataract Hypertension GREGG on CPAP Pneumonia Prediabetes Rhinitis Seasonal allergic rhinitis Sleep disturbance Snoring Surgical History Surgical History History of knee surgery Family History Family History Father Diabetes mellitus Patient's father is in good health Sibling Malignant neoplasm of prostate, Onset Age: 65 Mother Family history of lung cancer, Onset Age: 54 Social History Social History Smoking packs per day: 0.5 Smoking cigarettes per day: 10.0 Years smoked: 7 Smoking pack-years: 3.50 Smoking status: Former smoker Tobacco type: cigarettes Second hand tobacco smoke exposure: No Smoking end date: 11/02/82 Additional smoking assessment comments: started smoking at age 14 Alcohol intake: never Substance use: never Substance use type: does not use Lack of Transportation: No Lack of Food: Never True Current Housing: I Have Housing Concerned About Future Housing: No Difficulty Paying Gas/Electric Bills: No Difficulty Paying for Meds: No Currently Unemployed: No Education: Trade/Vocational Certificate Difficulty w/ Childcare or Family Care: No Comments At the time of my signature, I reviewed and agree with the nursing past medical, surgical, social, and family history. There is no relevant family history pertinent to the patient complaint. Exam Narrative: General: Well-developed, well nourished, in no apparent distress Head: Normocephalic, atraumatic Eyes: Pupils equally round and reactive to light b
[2023-11-01 15:02] VITALS: BP 128/103; PULSE 86; RESP 20; TEMP 37.1; O2SAT 97
[2023-11-01] MEDS: IPRATROPIUM BR 0.02% INH SOLN 0.5 MG/2.5 ML VIAL INHALATION (15:22)
[2023-11-01] MEDS: ALBUTEROL SULFATE NEB 2.5 MG/3 ML INH INHALATION (15:22)
== END 2023-11-01 16:15 | disposition home or self-care (01) ==
PROVIDERS: Emergency Provider Nurse Practitioner Family; PCP Nurse Practitioner Family
DX: J44.1 Chronic obstructive pulmonary disease with (acute) exacerbation (principal); Z20.822 Contact with and (suspected) exposure to COVID-19; Z87.891 Personal history of nicotine dependence; I10 Essential (primary) hypertension; K21.9 Gastro-esophageal reflux disease without esophagitis; G47.33 Obstructive sleep apnea (adult) (pediatric); R73.03 Prediabetes; F41.9 Anxiety disorder, unspecified
CPT/HCPCS: 71046; 87426; 87804; 94640; 99213; C9803; G0463

== ENCOUNTER 2023-12-14 14:22 | Outpatient (CLI) | payer MEDICARE, SELFPAY ==
--- NOTE | ~2023-12-14 | XR_ITS ---
EXAMINATION: XR chest 2V DATE: 12/14/2023 14:38 INDICATION: Shortness of breath. TECHNIQUE: Frontal and lateral views of the chest were obtained. COMPARISON: Chest 2 views 11/01/2023, chest CT 08/10/2018 FINDINGS: There is mild atelectasis in left lower lung zone. No pleural effusion or pneumothorax. The heart size is normal. IMPRESSION: 1. Mild atelectasis in left lower lung zone. Reviewed, dictated and finalized at location A. OMER SERVICE ANALYST
== END 2023-12-14 14:23 | disposition home or self-care (01) ==
LOC: ANHIMG 14:25
PROVIDERS: PCP Nurse Practitioner Family; Visit Provider Physician Assistant
DX: R91.8 Other nonspecific abnormal finding of lung field (principal); R06.02 Shortness of breath
CPT/HCPCS: 71046

== ENCOUNTER 2024-02-03 09:46 | Outpatient (CLI) | payer MEDICARE, SELFPAY ==
[2024-02-03 10:55] LABS: Influenza A QL RT-PCR Negative (Negative); Influenza B QL RT-PCR Negative (Negative); RSV RNA, RT-PCR Negative (Negative); SARS-CoV-2 RNA PCR Negative (Negative)
== END 2024-02-03 09:47 | disposition home or self-care (01) ==
LOC: ANHLAB 09:48
PROVIDERS: PCP Nurse Practitioner Family; Visit Provider Physician Assistant
DX: J84.9 Interstitial pulmonary disease, unspecified (principal)
CPT/HCPCS: 87637

== ENCOUNTER 2024-03-18 09:23 | Outpatient (CLI) | payer MEDICARE, SELFPAY ==
--- NOTE | ~2024-03-18 | CT_ITS ---
Clinical Indication: COPD CT Scan of the Chest with Contrast: Technique: Contiguous sections were acquired throughout the chest after intravenous administration of 100 cc of Omnipaque 350. Dose reduction technique was used on this scan by utilizing automated expos ure control and iterative reconstruction technique. The dose-length product (DLP) was 927.68 mGy-cm. Findings: There is no evidence of any significant mediastinal, hilar or axillary lymphadenopathy. There is no f illing defect in the pulmonary arterial tree to suggest pulmonary embolus. There is no evidence of ao rtic dissection or aneurysm. There is no evidence of pleural or pericardial effusion. The lungs are clear, aside from probable mild dependent atelectatic changes. Images through the upper abdomen reveal no abnormalities. Impression: No significant abnormality identified. Reviewed, dictated and finalized at [facility]. Impression: No significant abnormality identified.
== END 2024-03-18 09:24 | disposition home or self-care (01) ==
LOC: ANHIMG 09:26
PROVIDERS: PCP Nurse Practitioner Family; Visit Provider Physician Assistant
DX: J44.9 Chronic obstructive pulmonary disease, unspecified (principal)
CPT/HCPCS: 71275; Q9967

== ENCOUNTER 2024-04-18 12:52 | Outpatient (CLI) | payer MEDICARE, SELFPAY ==
--- NOTE | ~2024-04-18 | US_ITS ---
EXAMINATION:US venous doppler LE LT INDICATION:Left leg pain TECHNIQUE: Multiple grayscale, color flow and Doppler images of the left lower extremity deep venous systems were obtained and reviewed. COMPARISON:01/20/2023 FINDINGS: The common femoral, superficial femoral and popliteal veins demonstrate normal respiratory variation, augmentation and compressibility. Color flow is also seen within the posterior tibial, pe roneal, greater saphenous and profunda veins. IMPRESSION: 1: No lower extremity deep venous thrombosis. Reviewed, dictated and finalized at location B.
== END 2024-04-18 12:53 | disposition home or self-care (01) ==
LOC: ANHIMG 12:52
PROVIDERS: PCP Nurse Practitioner Family; Visit Provider Internal Medicine Cardiovascular Disease
DX: R60.0 Localized edema (principal)
CPT/HCPCS: 93971

== ENCOUNTER 2024-05-12 07:38 | Outpatient (CLI) | payer MEDICARE, SELFPAY ==
--- NOTE | 2024-05-12 07:48 | ECHO_ITS ---
Patient Info Name: Sera Lawrence Age: 69 years : 1955 Gender: Female Ht: 59 in Wt: 247 lbs BSA: 2.24 m2 HR: 72 bpm BP: 108 / 74 mmHg Technical Quality: Good Exam Date: 05/12/2024 8:07 AM Exam Location: Echo Lab Patient Status: Outpatient Admit Date: 05/12/2024 Staff Ordering Physician: Venkata Conn DO Federal Aid Coordinator: Robel Morrell RDCS Attending Provider: Venkata Conn DO Referring Physician: Fabien HUTCHISON; Exam Type: CA echo doppler color flow Study Info Indications R06.02 - Shortness of breath Complete two-dimensional, color flow and Doppler transthoracic echocardiogram is performed. Summary 1. Complete two-dimensional, color flow and Doppler transthoracic echocardiogram is performed. 2. Left ventricular chamber dimension is normal. 3. Left ventricular systolic function is normal, estimated at 55-60%. 4. The left ventricular diastolic function is normal. 5. E/e' 8 is minimally elevated. 6. Left atrial chamber dimension is moderately enlarged. 7. There is trace mitral valve regurgitation. 8. There is mild tricuspid valve regurgitation. 9. No pulmonary hypertension, estimated pulmonary arterial systolic pressure is 32 mmHg. Left Ventricle E/e' 8 is minimally elevated. Left ventricular chamber dimension is normal. Left ventricular systolic function is normal, estimated at 55-60%. The left ventricular diastolic function is normal. Right Ventricle Right ventricular chamber dimension is normal. Right ventricular systolic function is normal. Left Atria Left atrial chamber dimension is moderately enlarged. Right Atria Right atrial chamber dimension is normal. Aortic Valve The aortic valve is trileaflet. There is no aortic valve stenosis. There is no aortic valve regurgitation. Pulmonic Valve There is no pulmonic regurgitation. Mitral Valve There is no mitral valve stenosis. There is trace mitral valve regurgitation. Tricuspid Valve There is mild tricuspid valve regurgitation. No pulmonary hypertension, estimated pulmonary arterial systolic pressure is 32 mmHg. Pericardium/Pleural There is no pericardial effusion. Inferior Vena Cava Normal inferior vena cava with >50% collapse upon inspiration consistent with normal right atrial pressure, 5 mmHg. Aorta The aortic root size at the sinus of Valsalva is normal. Left Ventricular Outflow Tract Name Value Normal LVOT 2D LVOT Diameter 2.1 cm LVOT Doppler LVOT Peak Gradient 5 mmHg LVOT Mean Gradient 3 mmHg LVOT VTI 23 cm LVOT VTI/AV VTI Ratio 0.9 LVOT Stroke Volume 82 ml LVOT CO 5.7 l/min LVOT CI 2.5 l/min/m2 Pulmonic Valve Name Value Normal PV Doppler PV Peak Gradient 3 mmHg Mitral Valve
== END 2024-05-12 07:39 | disposition home or self-care (01) ==
LOC: ANHCARD 07:40
PROVIDERS: PCP Nurse Practitioner Family; Visit Provider Internal Medicine Cardiovascular Disease
DX: I36.1 Nonrheumatic tricuspid (valve) insufficiency (principal); I51.7 Cardiomegaly
CPT/HCPCS: 93306

== ENCOUNTER 2024-05-25 07:40 | Outpatient (CLI) | payer MEDICARE, SELFPAY ==
[2024-05-25 08:21] LABS: Base Excess ABG -1.5 mEq/l (+/-2.0); Carboxyhemoglobin 0.7 % THb (0-2.0); Fractional Inspired Oxygen 21 %; HCO3 ABG 20.8 mEq/l (22.0-26.0); Methemoglobin ABG 0.1 %THb (0-1.5); Oxygen Content ABG 19.8 %vol (16.0-22.0); Oxygen Saturation ABG 96.5 % (95.0-100.0); Oxyhemoglobin 95.5 % THb (90.0-100.0); PCO2 ABG 28.7 mmHg (35.0-45.0); PO2 ABG 78.4 mmHg (80.0-100.0); PO2 FiO2 Ratio Arterial Blood 3.73 %; Reduced Hemoglobin 3.7 %THb (0-5.0); Total Hemoglobin 14.7 g/dL (12.0-18.0); pH ABG 7.477 (7.350-7.450)
[2024-05-25 08:26] LABS: Device ROOM AIR; Modified Allen's Test Pass; Site Drawn RIGHT BRACHIAL
--- NOTE | 2024-05-25 22:29 | P.PCNPFT_ITS ---
PFT Procedure Performed PFT Procedure Performed Spirometry with Pre/Post Bronchodilator Plethysmography (Lung Vol) Diffusing Cap (DLCO) Flow Vol Loop PFT Interpretation DOS: 05/25/2024 REQUESTING: Sebastián Sesay MD REASON FOR TESTING: COPD, asthma PULMONARY FUNCTION TESTS Repeatability of spirometry FEV1 maneuver pre-bronchodilator is Grade A. Repeatability of spirometry post-bronchodilator is Grade B. Spirometry: The pre-bronchodilator FEV1 is 1.72 L, 92%. The pre-bronchodilator FVC is 2.18 L, 92%. The FEV1/FVC ratio is 79%. After bronchodilator, the FEV1 is 1.70 L, 91%, -1%. The post bronchodilator FVC is 2.03 L, 86%, -7%. The FEV1/FVC ratio is 83%. Lung volumes: The total lung capacity is 5.0 L, 116%. The residual volume is 1.97 L, 101%. The RV/TLC is 39%. Airway resistance is normal. Diffusion: DLCO is 12.4, 67%, in the normal range. The DLCO/VA is 4.14, 92%, normal. Flow volume loop: The flow volume loop is normal. IMPRESSION: Normal spirometry without response to bronchodilator, normal lung volumes, normal diffusion. Lack of response to bronchodilator should not pr eclude use if clinically indicated. Compared to a prior study 12/01/2017, the absolute values of FEV1, FVC, TLC, RV, and similar, remain in the normal range. The DLCO absolute value is lower however is has improved and is in the normal range. Ximena Landon MD
== END 2024-05-25 07:41 | disposition home or self-care (01) ==
PROVIDERS: PCP Nurse Practitioner Family; Visit Provider Internal Medicine Pulmonary Disease
DX: J84.9 Interstitial pulmonary disease, unspecified (principal); J44.9 Chronic obstructive pulmonary disease, unspecified
CPT/HCPCS: 36600; 82375; 82805; 83050; 94060; 94618; 94726; 94729

== ENCOUNTER 2024-05-30 08:51 | Outpatient (CLI) | payer MEDICARE, SELFPAY ==
--- NOTE | ~2024-05-30 | NM_ITS ---
EXAMINATION: NM alireza stress w perfusion DATE: 05/30/2024 10:55 INDICATION: Chest pain. TECHNIQUE: Rest images were obtained following intravenous administration of 9 mCi Tc99m tetrofosmin (Myoview). The patient was infused intravenously with Lexiscan (regadenoson). Then, 27.9 mCi Tc99m te trofosmin (Myoview) was administered intravenously, and stress images were obtained. Data was reconst ructed into short axis and horizontal and vertical long axis SPECT images. Gated SPECT images were al so obtained. COMPARISON: Chest CT 03/18/2024 FINDINGS: There is no definite reversible or fixed perfusion abnormality to suggest ischemia or infar ction. There is no segmental wall motion abnormality. Left ventricular ejection fraction measures 6 9%. IMPRESSION: 1. No definite ischemia or infarct. 2. Normal left ventricular ejection fraction measuring 69%. Reviewed, dictated and finalized at location A.
--- NOTE | 2024-05-30 08:54 | EST_ITS ---
Patient Info Name: Sera Lawrence Age: 69 years : 1955 Gender: Female Ht: 59 in Wt: 244 lbs BSA: 2.22 m2 HR: 68 bpm BP: 101 / 53 mmHg Heart Rhythm: Sinus Rhythm Exam Date: 05/30/2024 10:00 AM Exam Location: Echo Lab Patient Status: Outpatient Admit Date: 05/30/2024 Staff Ordering Physician: Venkata Conn DO Attending Provider: Venkata Conn DO Exercise Technologist: Alicia Mace CT Exercise Physician: Venkata Conn DO Exam Type: CA stress alireza w NM Study Info Indications R07.89 - Other chest pain A regadenoson stress test was performed. Summary 1. 1. Negative lexiscan stress test for ischemic ST changes by ECG criteria. 2. 2. Stable hemodynamics throughout the test. 3. 3. Nuclear scan to follow and will be reported separately. Please correlate with it. 4. 4. Patient informed of the above results. Protocol: Lexiscan Stress ECG Details Stage: REST Duration (min): 1 min : 7 sec HR (bpm): 70 SBP (mmHg): 101 DBP (mmHg): 53 Stage: REST Duration (min): 10 min : 33 sec HR (bpm): 67 SBP (mmHg): 101 DBP (mmHg): 53 Stage: STAGE 1 Duration (min): 0 min : 59 sec HR (bpm): 78 SBP (mmHg): 115 DBP (mmHg): 71 Stage: RECOVERY Duration (min): 1 min : 0 sec HR (bpm): 74 SBP (mmHg): 115 DBP (mmHg): 71 Stage: RECOVERY Duration (min): 2 min : 0 sec HR (bpm): 72 SBP (mmHg): 115 DBP (mmHg): 71 Stage: RECOVERY Duration (min): 3 min : 0 sec HR (bpm): 74 SBP (mmHg): 111 DBP (mmHg): 69 Stage: RECOVERY Duration (min): 3 min : 8 sec HR (bpm): 75 SBP (mmHg): 111 DBP (mmHg): 69 Rest HR: 67 bpm Peak HR: 82 bpm Rest Sys BP: 101 mmHg Peak Sys BP: 115 mmHg Max Pred HR: 150 bpm % Max Pred HR: 55 % Target HR: 128 bpm Max RPP: 9,430 bpm*mmHg Termination Reason: Completed protocol Cardiac Symptoms: Shortness of breath Total Time: 1 min : 0 sec Rest Barrera BP: 53 mmHg Peak Barrera BP: 71 mmHg Total Dose: 0.4 mg Resting ECG Sinus rhythm. Stress ECG No ST changes. Arrhythmias None. Report Signatures
== END 2024-05-30 08:52 | disposition home or self-care (01) ==
PROVIDERS: PCP Nurse Practitioner Family; Visit Provider Internal Medicine Cardiovascular Disease
DX: R07.9 Chest pain, unspecified (principal)
CPT/HCPCS: 78452; 93017; A9502; J2785

== ENCOUNTER 2024-09-06 00:13 | Day surgery (SDC) | payer MEDICARE, SELFPAY ==
[2024-08-30 13:09] VITALS: BMI 47.2
[2024-09-06 12:19] VITALS: BP 153/83; PULSE 79; RESP 18; TEMP 36.1; O2SAT 99
[2024-09-06] MEDS: LACTATED RINGERS 1,000 ML 150 ML IV CONT (12:30)
--- NOTE | 2024-09-06 12:39 | P.PNAN_ITS ---
Anes - Initial Pre Proc Eval Procedure: Operation Date: 09/06/24 13:30 Proposed Procedures p Colonoscopy - Nathan Gerardo MD Date/Time: 09/06/24 12:39 Surgeon: Nathan Gerardo MD Pre Op Diagnosis: personal hx of colon polyps Patient Data Age: 69 Gender: F Height: 1.5 m Weight: 104.7 kg Last Vital Signs Temp 36.1 C L 09/06/24 12:19 Pulse 79 09/06/24 12:19 Resp 18 09/06/24 12:19 BP 153/83 H 09/06/24 12:19 Pulse Ox 99 09/06/24 12:19 O2 Del Method Room Air 09/06/24 12:19 Allergies Allergy/AdvReac Type Severity Reaction Status Date / Time Aminoglycosides Allergy Severe SWELLING Verified 09/06/24 12:18 AND BLISTERS neomycin Allergy Severe SWELLING Verified 09/06/24 12:18 AND BLISTERS bacitracin Allergy Unknown Unknown Verified 09/06/24 12:18 enalapril Allergy Unknown Unknown Verified 09/06/24 12:18 lisinopril Allergy Unknown Unknown Verified 09/06/24 12:18 polymyxin B Allergy Unknown Unknown Verified 09/06/24 12:18 trazodone Allergy Unknown Unknown Verified 09/06/24 12:18 venlafaxine Allergy Unknown Unknown Verified 09/06/24 12:18 vilazodone Allergy Unknown Unknown Verified 09/06/24 12:18 Home Medications Medication Instructions Recorded Confirmed Type albuterol sulfate 2.5 mg/3 mL 2.5 mg (3 mL) inhalation Q4-6H PRN 10/10/22 09/06/24 Rx (0.083 %) solution for nebulization shortness of breath or wheezing #180 mL losartan 50 mg tablet 50 mg PO DAILY #90 tabs 10/13/23 09/06/24 Rx benzonatate 200 mg capsule 200 mg PO TID PRN cough #60 caps 11/18/23 09/06/24 Rx bupropion HCl 150 mg 24 hr tablet, 150 mg PO QAM #30 tabs 02/15/24 09/06/24 Rx extended release (Wellbutrin XL) budesonide-formoterol HFA 160 See Rx Instructions .Route 02/23/24 09/06/24 Rx mcg-4.5 mcg/actuation aerosol .COMPLEX #10.2 ea inhaler albuterol sulfate 90 mcg/actuation 2 inh inhalation Q4-6H PRN 02/25/24 09/06/24 Rx aerosol inhaler (Ventolin HFA) shortness of breath or wheezing #8.5 grams prednisone 10 mg tablet See Rx Instructions PO DAILY #44 03/04/24 09/06/24 Rx tabs nystatin 100,000 unit/gram topical 1 applic topical TID PRN rash #60 07/28/24 09/06/24 Rx powder grams escitalopram oxalate 20 mg tablet 20 mg PO DAILY #90 tabs 07/29/24 09/06/24 Rx (Lexapro) omeprazole 40 mg capsule,delayed 40 mg PO DAILY #90 caps 08/08/24 09/06/24 Rx release alprazolam 0.5 mg tablet 0.25 mg PO TID PRN anxiety #45 tabs 09/06/24 09/06/24 Rx Patient hx anesthesia problems: none Family hx anesthesia problems: none Results Review: All pre-operative results and documents have been reviewed as part of the pre- operative evaluation. [facility] Past Medical History Medical History Anxiety Asthma BMI 40.0-44.9, adult BMI 45.0-49.9, adult Breast cancer screening Colon cancer screening Elevated fasting glucose Elevated serum creatinine Essential hypertension Former smoker Patient quit 35 years ago. She smoked for 10 years 1 pack per day GERD (gastroesophageal reflux disease) History of asthma History of cataract Hx of colonic polyps Hypertension Low blood potassium GREGG on CPAP Pneumonia Prediabetes Rhinitis Screening for osteoporosis Seasonal allergic rhinitis Sleep disturbance Snoring Surgical History Surgical History History of knee surgery Family History Family History Father Diabetes mellitus Patient's father is in good health Sibling Malignant neoplasm of prostate, Onset Age: 65 Mother Family history of lung cancer, Onset Age: 54 Social History Social History Smoking packs per day: 0.5 Smoking cigarettes per day: 10.0 Years smoked: 7 Smoking pack-years: 3.50 Smoking status: Never smoker Tobacco type: cigarettes Second hand tobacco smoke exposure: No Smoking end date: 11/02/82 Additional smoking assessment comments: started smoking at age 14 Alcohol intake: never Substance use: never Substance use type: does not use Do You Feel Safe in your Home?: Yes Lack of Transportation: No Lack of Food: Never True Current Housing: I Have Housing Concerned About Future Housing: No Difficulty Paying Gas/Electric Bills: No Difficulty Paying for Meds: No Currently Unemployed: No Education: Trade/Vocational Certificate Difficulty w/ Childcare or Family Care: No Living arrangements: with family Spiritual care concerns: No Anes - Eval Final PreProcedure Day of Procedure 09/06/24 12:39 Patient weight: morbidly obese Heart: regular rate and rhythm Lungs: clear to auscultation Airway: Mallampati scale class II Neurological: alert and oriented Last oral intake: >/= 8 hours ASA classification: II Emergent: no Anesthetic plan: proceed Anesthesia type and monitoring: general GIVS and standard monitoring Results Review: All pre-operative results and documents have been reviewed as part of the pre- operative evaluation. Informed Consent: The patient's anesthetic plan and its attendant risks and benefits were discussed with the patient/family/POA. Questions were solicited and answers provided to the satisfaction of the patient/family/POA.
--- NOTE | 2024-09-06 12:55 | PM.HPGS ---
History of Present Illness History of Present Illness Consent: Risks, benefits, and alternatives have been discussed and questions answered. Patient agrees to proceed with procedure. Chief complaint: colon screen Narrative: Sera Lawrence is a 69 year old female here for screening colonoscopy, last one about 10 years ago Review of Systems Review of Systems: All systems reviewed & are unremarkable except as noted in HPI and below PMFSH Past Medical History Medical History Anxiety Asthma BMI 40.0-44.9, adult BMI 45.0-49.9, adult Breast cancer screening Colon cancer screening Elevated fasting glucose Elevated serum creatinine Essential hypertension Former smoker Patient quit 35 years ago. She smoked for 10 years 1 pack per day GERD (gastroesophageal reflux disease) History of asthma History of cataract Hx of colonic polyps Hypertension Low blood potassium GREGG on CPAP Pneumonia Prediabetes Rhinitis Screening for osteoporosis Seasonal allergic rhinitis Sleep disturbance Snoring Surgical History Surgical History History of knee surgery Family History Family History Father Diabetes mellitus Patient's father is in good health Sibling Malignant neoplasm of prostate, Onset Age: 65 Mother Family history of lung cancer, Onset Age: 54 Social History Social History Smoking packs per day: 0.5 Smoking cigarettes per day: 10.0 Years smoked: 7 Smoking pack-years: 3.50 Smoking status: Never smoker Tobacco type: cigarettes Second hand tobacco smoke exposure: No Smoking end date: 11/02/82 Additional smoking assessment comments: started smoking at age 14 Alcohol intake: never Substance use: never Substance use type: does not use Do You Feel Safe in your Home?: Yes Lack of Transportation: No Lack of Food: Never True Current Housing: I Have Housing Concerned About Future Housing: No Difficulty Paying Gas/Electric Bills: No Difficulty Paying for Meds: No Currently Unemployed: No Education: Trade/Vocational Certificate Difficulty w/ Childcare or Family Care: No Living arrangements: with family Spiritual care concerns: No Meds Home Medications and Allergies Home Medications Medication Instructions Recorded Confirmed Type albuterol sulfate 2.5 mg/3 mL 2.5 mg (3 mL) inhalation Q4-6H PRN 10/10/22 09/06/24 Rx (0.083 %) solution for nebulization shortness of breath or wheezing #180 mL losartan 50 mg tablet 50 mg PO DAILY #90 tabs 10/13/23 09/06/24 Rx benzonatate 200 mg capsule 200 mg PO TID PRN cough #60 caps 11/18/23 09/06/24 Rx bupropion HCl 150 mg 24 hr tablet, 150 mg PO QAM #30 tabs 02/15/24 09/06/24 Rx extended release (Wellbutrin XL) budesonide-formoterol HFA 160 See Rx Instructions .Route 02/23/24 09/06/24 Rx mcg-4.5 mcg/actuation aerosol .COMPLEX #10.2 ea inhaler albuterol sulfate 90 mcg/actuation 2 inh inhalation Q4-6H PRN 02/25/24 09/06/24 Rx aerosol inhaler (Ventolin HFA) shortness of breath or wheezing #8.5 grams prednisone 10 mg tablet See Rx Instructions PO DAILY #44 03/04/24 09/06/24 Rx tabs nystatin 100,000 unit/gram topical 1 applic topical TID PRN rash #60 07/28/24 09/06/24 Rx powder grams escitalopram oxalate 20 mg tablet 20 mg PO DAILY #90 tabs 07/29/24 09/06/24 Rx (Lexapro) omeprazole 40 mg capsule,delayed 40 mg PO DAILY #90 caps 08/08/24 09/06/24 Rx release alprazolam 0.5 mg tablet 0.25 mg PO TID PRN anxiety #45 tabs 09/06/24 09/06/24 Rx Allergies Allergy/AdvReac Type Severity Reaction Status Date / Time Aminoglycosides Allergy Severe SWELLING Verified 09/06/24 12:18 AND BLISTERS neomycin Allergy Severe SWELLING Verified 09/06/24 12:18 AND BLISTERS bacitracin Allergy Unknown Unknown Verified 09/06/24 12:18 enalapril Allergy Unknown Unknown Verified 09/06/24 12:18 lisinopril Allergy Unknown Unknown Verified 09/06/24 12:18 polymyxin B Allergy Unknown Unknown Verified 09/06/24 12:18 trazodone Allergy Unknown Unknown Verified 09/06/24 12:18 venlafaxine Allergy Unknown Unknown Verified 09/06/24 12:18 vilazodone Allergy Unknown Unknown Verified 09/06/24 12:18 Vital Signs Vital Signs - 24 hr 09/06/24 12:19 Temperature 97 F L Pulse Rate 79 Respiratory Rate 18 Blood Pressure 153/83 H Pulse Oximetry 99 Oxygen Delivery Room Air Exam Const: General: comfortable and no acute distress HENMT: Face/Nose/Sinus: Normal nares present Eyes: General: appearance normal, both eyes and all related structures Neck: Neck: no JVD Resp: Auscultation: clear to auscultation bilaterally Cardio: Rate: regular rate Rhythm: regular rhythm GI: Inspection: non-distended GI Palp: Yes Soft to palpation Skin: General skin exam: normal color Neuro: General: gait normal Speech: normal speech Extrem: General: normal to inspection Psych: Mental Status: mental status grossly normal Assessment and Plan Assessment and plan (1) Colon cancer screening: Code(s): Z12.11 - Encounter for screening for malignant neoplasm of colon Status: Acute Assessment and Plan: colonoscopy
[2024-09-06 13:18] VITALS: BP 102/74; PULSE 75; RESP 24; O2SAT 96
[2024-09-06 13:28] VITALS: BP 104/61; PULSE 72; RESP 24; O2SAT 99
[2024-09-06 13:38] VITALS: BP 109/58; PULSE 65; RESP 31; O2SAT 100
== END 2024-09-06 13:46 | disposition home or self-care (01) ==
PROVIDERS: PCP Nurse Practitioner Family; Visit Provider Internal Medicine Gastroenterology
PROC: 0DJD8ZZ Inspection of Lower Intestinal Tract, Via Natural or Artificial Opening Endoscopic (ICD-10-PCS; CPT 45378; principal; 2024-09-06 13:30)
DX: Z12.11 Encounter for screening for malignant neoplasm of colon (principal); D12.3 Benign neoplasm of transverse colon; D12.4 Benign neoplasm of descending colon; K63.5 Polyp of colon; K57.30 Diverticulosis of large intestine without perforation or abscess without bleeding; J45.909 Unspecified asthma, uncomplicated; I10 Essential (primary) hypertension; G47.33 Obstructive sleep apnea (adult) (pediatric); K21.9 Gastro-esophageal reflux disease without esophagitis; Z79.51 Long term (current) use of inhaled steroids; Z87.891 Personal history of nicotine dependence; E66.01 Morbid (severe) obesity due to excess calories; Z68.42 Body mass index [BMI] 45.0-49.9, adult
CPT/HCPCS: 45385; 88305; J2003; J2704; J7120

== ENCOUNTER 2024-09-18 11:54 | Emergency (ER) | payer MEDICARE, SELFPAY ==
[2024-09-18 12:00] VITALS: PULSE 80; RESP 24; O2SAT 97
--- NOTE | 2024-09-18 12:06 | ED_ITS ---
HPI - URI/Sore Throat General Chief Complaint: Upper Respiratory Infection Stated Complaint: hard to breathe, asthmatic, ears blocked Time Seen by Provider: 09/18/24 12:07 Source: patient, RN notes reviewed and old records reviewed Mode of arrival: ambulatory Limitations: no limitations History of Present Illness HPI Narrative: Patient presents with 5 day history of wheezing and shortness of breath. She reports that she thought using a nebulizer machine at home would fix her symptoms, but realized today this is not the case. She arrives speaking in full sentences, no tripoding. She does have audible wheezing. She denies any fever, chills, sweats She is also complaining about feeling of fullness to the bilateral ears that has been present for a week or 2. She has not been taking anything for her symp toms. Reports mildly decreased hearing bilaterally. No injury or trauma Related Data Allergies Allergy/AdvReac Type Severity Reaction Status Date / Time Aminoglycosides Allergy Severe SWELLING Verified 09/18/24 12:16 AND BLISTERS neomycin Allergy Severe SWELLING Verified 09/18/24 12:16 AND BLISTERS bacitracin Allergy Unknown Unknown Verified 09/18/24 12:16 enalapril Allergy Unknown Unknown Verified 09/18/24 12:16 lisinopril Allergy Unknown Unknown Verified 09/18/24 12:16 polymyxin B Allergy Unknown Unknown Verified 09/18/24 12:16 trazodone Allergy Unknown Unknown Verified 09/18/24 12:16 venlafaxine Allergy Unknown Unknown Verified 09/18/24 12:16 vilazodone Allergy Unknown Unknown Verified 09/18/24 12:16 Review of Systems Review of Systems: All systems reviewed & are unremarkable except as noted in HPI and below Constitutional: Constitutional: Reports no additional constitutional complaints ENT: Reports system reviewed and no additional complaints, except as documented, Reports as per HPI, Reports otalgia and Reports hearing loss Cardiovascular: Cardiovascular: Reports no additional cardiovascular complaints Respiratory: Respiratory: Reports no additional respiratory complaints, Reports cough, Reports dyspnea and Reports wheezing Gastrointestinal: Gastrointestinal: Reports no additional gastrointestinal complaints PMFSH Past Medical History Medical History Anxiety Asthma BMI 40.0-44.9, adult BMI 45.0-49.9, adult Breast cancer screening Colon cancer screening Elevated fasting glucose Elevated serum creatinine Essential hypertension Former smoker Patient quit 35 years ago. She smoked for 10 years 1 pack per day GERD (gastroesophageal reflux disease) History of asthma History of cataract Hx of colonic polyps Hypertension Low blood potassium GREGG on CPAP Pneumonia Prediabetes Rhinitis Screening for osteoporosis Seasonal allergic rhinitis Sleep disturbance Snoring Surgical History Surgical History History of knee surgery Family History Family History Father Diabetes mellitus Patient's father is in good health Sibling Malignant neoplasm of prostate, Onset Age: 65 Mother Family history of lung cancer, Onset Age: 54 Social History Social History Smoking packs per day: 0.5 Smoking cigarettes per day: 10.0 Years smoked: 7 Smoking pack-years: 3.50 Smoking status: Never smoker Tobacco type: cigarettes Second hand tobacco smoke exposure: No Smoking end date: 11/02/82 Additional smoking assessment comments: started smoking at age 14 Alcohol intake: never Substance use: never Substance use type: does not use Do You Feel Safe in your Home?: Yes Lack of Transportation: No Lack of Food: Never True Current Housing: I Have Housing Concerned About Future Housing: No Difficulty Paying Gas/Electric Bills: No Difficulty Paying for Meds: No Currently Unemployed: No Education: Trade/Vocational Certificate Difficulty w/ Childcare or Family Care: No Living arrangements: with family Spiritual care concerns: No Comments At the time of my signature, I reviewed and agree with the nursing past medical, surgical, social, and family history. There is no relevant family history pertinent to the patient complaint. Exam Const: General: cooperative, no acute distress, alert and awake Orientation/consciousness: oriented to person, oriented to place and oriented to time HENMT: Head: normal to inspection Ears: Abnormal EAC present cerumen impaction bilateral Mouth: Yes moist mucous membranes Resp: Effort & Inspection: normal respiratory effort and able to speak in complete sentences Auscultation: clear to auscultation bilaterally, no crackles, no rales, no rhonchi and wheezes throughout Cardio: Palpation: normal PMI Rate: regular rate Rhythm: regular rhythm Heart sounds: S1 normal heart sound present and S2 normal heart sound present Neuro: General: oriented to person, oriented to place and oriented to time Cranial nerves: Yes CN's II-XII intact bilaterally Psych: Appearance: grossly normal Thought process: Normal thought process present Insight: Good insight present (Psych) Judgement: Good judgement present (Psych) Course Course Level of Care: Express Care Visit Vital Signs Vital signs: Reviewed MDM - URI/Sore Throat MDM Narrative Medical decision making narrative: Patient with a significant pulmonary history presents with exacerbation of chronic problems. She is much better after neb treatment and 1st dose of steroids. Plan to discharge home with prednisone burst, azithromycin for added anti-inflammatory affect, patient has albuterol. She is counseled to go to nearest emergency department with any new or worse symptoms. Discharge instructions reviewed with patient, as well as provided in writing per nursing staff. The instructions also include specific and strict return/GO TO THE ER as well as f/u information. All questions have been answered, and the patient deny any further questions with discharge and discharge plan. Some parts of this dictation were generated by voice recognition software and may contain typographical and/or grammatical inaccuracies. Differential Diagnosis Differential diagnosis: Likely upper respiratory infection, viral infection and pharyngitis Medical Records Attestation: I reviewed the patient's medical records. Discharge Plan Discharge Clinical Impression: Asthma exacerbation in COPD Patient Disposition: Home, Self-Care Condition: Stable Instructions: Antibiotic Form, Asthma (ED) Additional Instructions: Take medications as prescribed. Follow-up with primary care provider. Go to emergency department immediately with new or worse symptoms Patient Language: Citizen Of [place] Prescriptions: New prednisone 50 mg tablet 50 mg PO DAILY Qty: 4 0RF azithromycin 250 mg tablet See Rx Instructions PO .COMPLEX Qty: 6 0RF Rx Instructions: For 250 mg dose pack: take 500 mg today (day 1), then 250 mg for 4 days (days 2-5) No Action losartan 50 mg tablet 50 mg PO DAILY Qty: 90 3RF albuterol sulfate 2.5 mg /3 mL (0.083 %) solution for nebulization 2.5 mg inhalation Q4-6H PRN (Reason: shortness of breath or wheezing) Qty: 180 3RF benzonatate 200 mg capsule 200 mg PO TID PRN (Reason: cough) Qty: 60 2RF prednisone 10 mg tablet See Rx Instructions PO DAILY Qty: 44 0RF Hold Instructions: Patient no longer taking Rx Instructions: 4 tabs daily x 5 days; then 3 tabs daily x 4 days, then 2 tabs daily x 4 days, then 1 tab daily x 4 days. bupropion HCl [Wellbutrin XL] 150 mg tablet extended release 24 hr 150 mg PO QAM Qty: 30 11RF budesonide-formoterol 160-4.5 mcg/actuation HFA aerosol inhaler See Rx Instructions .ROUTE .COMPLEX Qty: 10.2 5RF Hold Instructions: Hold during trial of Breztri Dose Instruction: INHALE 2 PUFFS BY MOUTH EVERY 12 HOURS *RINSE AND SPIT AFTER EACH USE* Rx Instructions: INHALE 2 PUFFS BY MOUTH EVERY 12 HOURS *RINSE AND SPIT AFTER EACH USE* albuterol sulfate [Ventolin HFA] 90 mcg/actuation HFA aerosol inhaler 2 inh INHALATION Q4-6H PRN (Reason: shortness of breath or wheezing) Qty: 8.5 3RF nystatin 100,000 unit/gram powder 1 applic topical TID PRN (Reason: rash) Qty: 60 5RF escitalopram oxalate [Lexapro] 20 mg tablet 20 mg PO DAILY Qty: 90 3RF omeprazole 40 mg capsule,delayed release(DR/EC) 40 mg PO DAILY Qty: 90 3RF alprazolam 0.5 mg tablet 0.25 mg PO TID PRN (Reason: anxiety) Qty: 45 5RF Follow-up/Referrals: Ashlyn Reddy NP [Primary Care Provider] - 1 Week Time of Disposition: 12:57
[2024-09-18 12:10] VITALS: BP 142/81; PULSE 80; RESP 16; TEMP 36.7; O2SAT 98
[2024-09-18] MEDS: predniSONE 20 MG TABLET 60 MG PO (12:18)
[2024-09-18] MEDS: IPRATROPIUM 0.5 MG/ALBUTEROL SULFATE 2.5 MG AMPUL.NEB 3 ML INHALATION (12:18)
[2024-09-18 12:41] VITALS: PULSE 90; RESP 24; O2SAT 95
[2024-09-18 13:12] VITALS: RESP 22; O2SAT 96
== END 2024-09-18 13:13 | disposition home or self-care (01) ==
PROVIDERS: Emergency Provider Nurse Practitioner Family; PCP Nurse Practitioner Family
DX: J44.1 Chronic obstructive pulmonary disease with (acute) exacerbation (principal); Z87.891 Personal history of nicotine dependence; I10 Essential (primary) hypertension; K21.9 Gastro-esophageal reflux disease without esophagitis; R73.03 Prediabetes; G47.33 Obstructive sleep apnea (adult) (pediatric)
CPT/HCPCS: 99213; G0463; J7512

== ENCOUNTER 2024-10-14 14:42 | Outpatient (CLI) | payer MEDICARE, SELFPAY ==
--- NOTE | ~2024-10-14 | XR_ITS ---
XR chest 2V 10/14/2024 15:15 Indication: Cough Procedure: 2 view chest Comparison: Comparison to multiple prior studies sequentially, with oldest reviewed study dated 08/02. Findings: Cardiomegaly. Mild interstitial edema. No pleural effusion or pneumothorax. No acute osseou s abnormality. Impression: 1: Mild interstitial edema. Reviewed, dictated and finalized at location B. IC WORKER Impression: 1: Mild interstitial edema.
--- OUTSIDE RECORDS SUMMARY | 2024-10-17 23:53 | XMS_ITS | Data Portability ---
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 Home Extension Agent variances may occur. Despite proofreading, typographical errors may occur. Occasional wrong-word or 'valbc-o-yuvn' substitutions may have occurred due to the inherent limitations of voice recording. Read the chart carefully and recognize, using context, where substitutions have occurred. Not available 03/15/2024 15:15:00 06/14/2024 06/14/2024 This note is dictated and transcribed by [employer]. [employer] Agent variances may occur. Despite proofreading, typographical errors may occur. Occasional wrong-word or 'bniam-c-reko' substitutions may have occurred due to the inherent limitations of voice recording. Read the chart carefully and recognize, using context, where substitutions have occurred. Not available 06/14/2024 13:40:22 09/13/2024 09/13/2024 This note is dictated and transcribed by [employer]. [employer] Agent variances may occur. Despite proofreading, typographical errors may occur. Occasional wrong-word or 'ciyzc-e-rhap' substitutions may have occurred due to the inherent limitations of voice recording. Read the chart carefully and recognize, using context, where substitutions have occurred. Not available 09/13/2024 11:58:26 Plan of Treatment Reminders Order Date Submit Date Provider Last Modified By Organization Details Last Modified Time Details Appointments Establish ed Patient 15 2024 11:00A M Robel Thurman DPM Not available Not available Not available Lab None recorded. Referral None recorded. Procedures None recorded. Surgeries None recorded. Imaging None recorded. Medication Orders None recorded. Patient TargetsNo targets recorded. Patient InstructionsNo instructions recorded. Reason for Referral None Reported. Problems Name Problem SNOMED Code Status Onset Date Resolution Date Notes Provider Name and Address Organization Details Recorded Time Sprain of right ankle 24688583763 642781 Active 2021 Not Available [facility] 3 06:46:05 Injury of knee 481572876 Completed Not Available [facility] 3 06:46:06 Disorder of thyroid gland 44705581 Active 2020 Not Available [facility] 3 06:46:06 Pain in both feet 68751510535 012965 Active 2021 Not Available [facility] 3 06:46:06 Serum alkaline phosphata se above reference range 476126306 Active 2021 Not Available [facility] 3 06:46:06 Impacted cerumen 58797048 Completed Not Available [facility] 3 06:46:06 Asthma 588786421 Active Not Available [facility] 3 06:46:06 Boil of back 780102125 Completed 201611/03/2017 Not Available [facility] 3 06:46:06 Celluliti s and abscess of back 281687890 Completed 201611/03/2017 Not Available [facility] 3 06:46:07 Closed fracture proximal humerus, greater tuberosit y 326392118 Active Not Available [facility] 3 06:46:07 Feeling stressed 274588116 Completed Not Available [facility] 3 06:46:07 Foot callus 497068905 Active 2021 Not Available [facility] 3 06:46:07 Gastroeso phageal reflux disease 902459798 Active Not Available [facility] 3 06:46:07 Low back pain 516250981 Active Not Available [facility] 3 06:46:07 Unable to cut own toenails 080804028 Active 2021 Not Available [facility] 3 06:46:07 History of SARS-CoV- 2 92532664222 7593621 Active 2020 Not Available [employer] 3 06:46:08 Current tear of medial cartilage AND/OR meniscus of knee Active Not Available [facility] 3 06:46:08 Knee pain Active Not Available [facility] 3 06:46:08 Pain in right foot 00655734895 9107 Active 2021 Not Available [facility] 3 06:46:08 Tendiniti s of left posterior tibial tendon 96820245308 9100 Active 2021 Not Available [facility] 3 06:46:08 Tendiniti s of right posterior tibial tendon 72138140118 9102 Active 2021 Not Available [facility] 3 06:46:08 Bronchiti s 47206384 Completed Not Available [facility] 3 06:46:09 Depressiv e disorder 85112975 Active Not Available [facility] 3 06:46:09 Sinusitis 95455789 Completed Not Available [facility] 3 06:46:09 Hypertens jennifer disorder 82297233 Active Not Available [facility] 3 06:46:09 Osteoarth ritis 973561601 Active 2016 Not Available [facility] 3 06:46:09 Body mass index 40+ - severely obese 555823775 Active 2020 Not Available [facility] 3 06:46:10 Obesity 434748760 Active Not Available [facility] 3 06:46:10 Seasonal allergy 777514717 Active Not Available [facility] 3 06:46:10 Anxiety 04549200 Active Not Available [facility] 3 06:46:10 Dysuria 88338561 Completed Not Available [facility] 3 06:46:11 Acute ankle pain 60622360824 105 Active 2021 Not Available 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 266568799 Active 2016 Not Available [facility] 3 06:46:12 Hyperglyc emia 30148719 Active 2016 Not Available [facility] 3 06:46:12 COVID-19 726056987 Active 2020 Not Available [facility] 3 06:46:12 Dystrophi a unguium 12804096 Active 2021 Not Available [facility] 3 06:46:12 Pulmonary emphysema 63803215 Active 2021 Not Available [facility] 3 06:46:13 Pain of toe of left foot 20985058769 9108 Active 2023 Robel Thurman DPM [address], [place], [address] , [employer] 4 13:40:00 Callosity on toe 723373749 Active 2023 Robel Thurman DPM [address], [place], [address] , [employer] 4 13:40:05 Hammer toe 125988032 Active 2023 Robel Thurman DPM [address], [place], [address] , [employer] 4 13:40:49 Hammer toe 118622864 Active 2023 Robel Thurman DPM [address], [place], [address] , [employer] [facility] [employer] 4 12:28:17 Problem Notes None recorded. Procedures Surgical History Date Name Laterality Status Provider Name and Address Organization Details Recorded Time 09/13/20 24 Nail Debridement completed [employer] [address], [place], [address], [employer] [facility] [employer] 09/13/2024 12:28:07 09/13/20 24 Callus Debridement, One completed [employer] [address], [place], [address], [employer] [facility] [employer] 09/13/2024 12:27:58 06/14/20 24 Nail Debridement completed [address], [place], [address], [employer] 06/14/2024 13:39:35 06/14/20 24 Callus Debridement 2-4 completed [employer] [address], [place], [address], [employer] 06/14/2024 13:39:39 03/15/20 24 Nail Debridement completed [employer] [address], [place], [address], [employer] 03/15/2024 15:12:16 03/15/20 24 Callus Debridement 2-4 completed [employer] [address], [place], [address], [employer] 03/15/2024 15:12:08 12/15/19 24 Nail Debridement completed [employer] [address], [place], [address], [employer] [facility] [employer] 12/21/2023 09:06:12 12/15/19 24 Callus Debridement 2-[address], [place], [address], [employer] [facility] [employer] 12/21/2023 09:06:02 05/12/20 23 Nail Debridement completed [employer] [address], [place], [address], [facility] [employer] [facility] 05/12/2023 14:33:00 05/12/20 23 Callus Debridement 2-4 completed Robel Thurman DPM [address], [place], [address], [facility] [employer] [facility] 05/12/2023 14:33:05 02/06/20 23 Nail Debridement completed Robel Thurman DPM [address], [place], [address], [facility] [employer] [facility] 02/27/2023 15:11:10 02/06/20 23 Callus Debridement, One completed Robel Thurman DPM [address], [place], [address], [facility] [employer] [facility] 02/27/2023 15:11:03 Knee Replacement completed Not Available [facility] 12/31/2022 06:40:47 Imaging Results None recorded. Procedure Notes None recorded. Medical Equipment None Reported. Allergies Allergen ID Allergen Name Allergen Category Reaction Reaction Severity Criticality Documentation Date Start Date Code Code System Note Provider Name and Address Organization Details Recorded Time 43035 Viibryd medicatio n diarrhea Not available Not available 12/31/2022 47610 73 RxNorm Not Available [facility] 3 06:54:24 71187 Vasotec medicatio n cough Not available Not available 12/31/2022 60909 1 RxNorm Not Available [facility] 3 06:54:24 01172 trazodone medicatio n other Not available Not available 12/31/2022 24310 RxNorm reflu x Not Available [facility] 3 06:54:24 05171 Pristiq medicatio n Not available Not available Not available 12/31/2022 58598 2 RxNorm Not Available [facility] 3 06:54:24 55916 bacitraci n / neomycin / polymyxin B medicatio n Not available Not available Not available 12/31/2022 14247 9 RxNorm Not Available [facility] 3 06:54:24 60282 lisinopri l medicatio n other Not available Not available 12/31/2022 55384 RxNorm tired Not Available [facility] 3 06:54:25 89607 Levaquin medicatio n nausea Not available Not available 12/31/2022 75223 2 RxNorm Not Available [facility] 3 06:54:25 76861 Effexor medicatio n Not available Not available Not available 12/31/2022 82857 2 RxNorm Not Available [facility] 3 06:54:25 Medications Name Sig Start Date Stop Date Status Note LastModified by Organization Details LastModified Time losartan 50 mg tablet TAKE 1 TABLET BY MOUTH DAILY active Not Available Not Available No t Available celecoxib 200 mg capsule 1 cap po daily 02/15 completed Not Available Not Available Not Available nystatin 100,000 unit/mL oral suspension SWISH AND SWALLOW 5MLS BY MOUTH 4 TIMES DAILY X10 DAYS. SWISH FOR SEVERAL MINUTES BEFORE SWALLOWI NG active Not Available Not Available No t Available prednisone 10 mg tablet TAKE 4 TABS DAILY X5 DAYS, 3 TABS DAILY X4 DAYS, 2 TABS DAILY X4 DAYS, THEN 1 TAB DAILY X4 DAYS. active Not Available Not Available No t Available doxycyclin e hyclate 100 mg capsule TAKE 1 CAPSULE BY MOUTH DAILY X 1 WEEK FOR BRONCHIT IS 03/15 completed Not Available Not Available Not Available ipratropiu m 0.5 mg-albuter ol 3 mg (2.5 mg base)/3 mL nebulizati on soln INHALE THE CONTENTS OF 1 VIAL 4 TIMES A DAY NEEDED FOR SHORTNES S OF BREATH/W HEEZING 08/08 completed Not Available Not Available Not Available clindamyci n HCl 300 mg capsule TAKE 1 CAPSULE BY MOUTH EVERY 6 HOURS (STOP IF DIARRHEA OCCURS) 06/05 completed Not Available Not Available Not Available albuterol sulfate 2.5 mg/3 mL (0.083 %) solution for nebulizati on INHALE THE CONTENTS OF 1 VIAL VIA NEBULIZE R EVERY 4-6 HRS NEEDED FOR SHORTNES S OF BREATH/W HEEZING active Not Available Not Available No t Available azithromyc in 250 mg tablet TAKE 2 TABLETS BY MOUTH TODAY, THEN TAKE 1 TABLET DAILY FOR 4 DAYS 05/12 completed Not Available Not Available Not Available aspirin 325 mg tablet TAKE 1 TABLET BY MOUTH TWICE A DAY 08/08 completed Not Available Not Available Not Available ofloxacin 0.3 % eye drops 08/08 completed Not Available Not Available Not Available fluconazol e 150 mg tablet TAKE 1 TABLET BY MOUTH ONCE 1 DOSE THEN REPEAT DOSE 3 DAYS LATER 06/05 completed Not Available Not Available Not Available benzonatat e 200 mg capsule TAKE 1 CAPSULE BY MOUTH 3 TIMES DAILY NEEDED FOR COUGH 03/15 completed Not Available Not Available Not Available hydrocodon e 5 mg-acetami nophen 325 mg tablet TAKE 1 TABLET BY MOUTH EVERY 6 HOURS NEEDED FOR PAIN 05/12 completed Not Available Not Available Not Available meloxicam 15 mg tablet TAKE 1 TABLET BY MOUTH EVERY DAY active Not Available Not Available No t Available ondansetro n HCl 4 mg tablet TAKE 1 TABLET BY MOUTH EVERY 6 HOURS NEEDED FOR NAUSEA AND VOMITING 08/08 completed Not Available Not Available Not Available prednisone 20 mg tablet TAKE 2 TABLETS BY MOUTH EVERY DAY FOR 5 DAYS 03/15 completed Not Available Not Available Not Available travoprost 0.004 % eye drops INSTILL 1 DROP INTO BOTH EYES AT BEDTIME 08/08 completed Not Available Not Available Not Available Advair Diskus 100 mcg-50 mcg/dose powder for inhalation USE 1 INHALATI ON TWICE A DAY 11/03 completed Not Available Not Available Not Available phentermin e 37.5 mg tablet TAKE 1 TABLET BY MOUTH EVERY DAY active Not Available Not Available No t Available sulfametho xazole 800 mg-trimeth oprim 160 mg tablet Take 1 tablet every 12 hours by oral route for 7 days. 09/21 completed Not Available Not Available Not Available hydrocodon e 10 mg-acetami nophen 325 mg tablet Take 1 tablet every 4 hours by oral route. 06/23 completed Not Available Not Available Not Available omeprazole 40 mg capsule,de layed release TAKE 1 CAPSULE BY MOUTH DAILY active Not Available Not Available No t Available tramadol 50 mg tablet TAKE 1-2 TABLETS BY MOUTH EVERY 4-6 HOURS NEEDED 08/08 completed Not Available Not Available Not Available triamcinol one acetonide 0.1 % topical cream APPLY THIN COAT TO AFFECTED AREA(S) TWICE A DAY 03/15 completed Not Available Not Available Not Available amoxicilli n 500 mg tablet 02/03 completed Not Available Not Available Not Available ketorolac 0.5 % eye drops 08/08 completed Not Available Not Available Not Available Kenalog 40 mg/mL suspension for injection Take by injectio n route. 10/10 completed [facility]# [id number] Not Available Not Available Not Available oxycodone- acetaminop hen 5 mg-325 mg tablet TAKE 1 TO 2 TABLETS BY MOUTH EVERY 4 TO 6 HOURS NEEDED. (INSURAN CE MAX = 6 TABS/24 HOURS) 06/05 completed Not Available Not Available Not Available alprazolam 0.5 mg tablet TAKE 1/2 TABLET BY MOUTH THREE TIMES A DAY NEEDED FOR ANXIETY active Not Available Not Available No t Available amoxicilli n 875 mg tablet Take 1 tablet every 12 hours by oral route. 02/11 completed Not Available Not Available Not Available alprazolam 0.25 mg tablet TAKE 1 TABLET ORALLY THREE TIMES A DAY NEEDED FOR ANXIETY active Not Available Not Available No t Available prednisolo ne acetate 1 % eye drops,susp ension 08/08 completed Not Available Not Available Not Available methocarba mol 750 mg tablet Take 1 tablet every 4 hours by oral route. 02/11 completed Not Available Not Available Not Available benzonatat e 100 mg capsule TAKE 1 CAPSULE EVERY 4-6 HOURS BY MOUTH NEEDED FOR 15 DAYS. 02/15 completed Not Available Not Available Not Available cephalexin 500 mg capsule TAKE 1 CAPSULE BY MOUTH THREE TIMES A DAY 06/23 completed Not Available Not Available Not Available erythromyc in 5 mg/gram (0.5 %) eye ointment active Not Available Not Available Not Available esomeprazo le magnesium 40 mg capsule,de layed release TAKE 1 CAPSULE DAILY active Not Available Not Available No t Available nitrofuran toin macrocryst al 100 mg capsule active Not Available Not Available Not Available Tobrex 0.3 % eye ointment active Not Available Not Available Not Available losartan 25 mg tablet TAKE 2 TABLETS BY MOUTH EVERY DAY 03/15 completed Not Available Not Available Not Available montelukas t 10 mg tablet TAKE 1 TABLET BY MOUTH EVERY DAY 03/15 completed Not Available Not Available Not Available hydroxyzin e HCl 25 mg tablet TAKE 1 TABLET BY MOUTH EVERY 8 HOURS NEEDED 08/08 completed Not Available Not Available Not Available codeine 10 mg-guaifen esin 100 mg/5 mL oral liquid TAKE 5ML BY MOUTH AT BEDTIME NEEDED FOR COUGH 06/05 completed Not Available Not Available Not Available ergocalcif cammy (vitamin D2) 1,250 mcg (50,000 unit) capsule active Not Available Not Available Not Available levofloxac in 500 mg tablet TAKE 1 TABLET BY MOUTH EVERY DAY 05/24 completed Not Available Not Available Not Available levofloxac in 750 mg tablet TAKE 1 TABLET BY MOUTH EVERY DAY X7 DAYS 03/15 completed Not Available Not Available Not Available methylpred nisolone 4 mg tablets in a dose pack TAKE 6 TABLETS ON DAY 1 DIRECTED ON PACKAGE AND DECREASE BY 1 TAB EACH DAY FOR A TOTAL OF 6 DAYS active Not Available Not Available No t Available albuterol sulfate HFA 90 mcg/actuat ion aerosol inhaler INHALE 2 PUFFS EVERY 4-6 HOURS NEEDED FOR SHORTNES S OF BREATH OR WHEEZING active Not Available Not Available No t Available cefdinir 300 mg capsule TAKE 1 CAPSULE BY MOUTH EVERY 12 HOURS FOR 10 DAYS active Not Available Not Available No t Available fluticason e propionate 50 mcg/actuat ion nasal spray,susp ension ADMINIST ER 2 SPRAYS INTO EACH NOSTRIL DAILY 03/15 completed Not Available Not Available Not Available doxycyclin e hyclate 100 mg tablet TAKE 1 TABLET BY MOUTH EVERY DAY FOR 7 DAYS 05/12 completed Not Available Not Available Not Available phentermin e 37.5 mg capsule Take 1 capsule every day by oral route for 30 days. 03/15 completed Not Available Not Available Not Available loratadine 10 mg tablet TAKE 1 TABLET BY MOUTH EVERY DAY active Not Available Not Available No t Available amoxicilli n 875 mg-potassi um clavulanat e 125 mg tablet TAKE 1 TABLET BY MOUTH EVERY 12 HOURS active Not Available Not Available No t Available amoxicilli n 500 mg-potassi um clavulanat e 125 mg tablet active Not Available Not Available Not Available escitalopr am 10 mg tablet TAKE 1 TABLET BY MOUTH EVERY DAY 06/02 completed Not Available Not Available Not Available escitalopr am 20 mg tablet TAKE 1 TABLET BY MOUTH EVERY DAY active Not Available Not Available No t Available cyclobenza hannah 5 mg tablet TAKE ONE TABLET BY MOUTH AT BEDTIME FOR 30 DAYS active Not Available Not Available No t Available bupropion HCl XL 150 mg 24 hr tablet, extended release TAKE 1 TABLET BY MOUTH EVERY DAY IN THE MORNING active Not Available Not Available No t Available nitrofuran toin monohydrat e/macrocry stals 100 mg capsule TAKE 1 CAPSULE BY MOUTH EVERY 12 HOURS WITH A MEAL/HENRY D X5 DAYS active Not Available Not Available No t Available eszopiclon e 3 mg tablet 02/15 completed Not Available Not Available Not Available fenofibrat e 160 mg tablet Take 1 tablet every day by oral route. 02/15 completed Not Available Not Available Not Available Symbicort 80 mcg-4.5 mcg/actuat ion HFA aerosol inhaler Inhale 2 puffs twice a day by inhalati on route. 03/15 completed Not Available Not Available Not Available budesonide -formotero l HFA 160 mcg-4.5 mcg/actuat ion aerosol inhaler INHALE 2 PUFFS EVERY 12 HOURS RINSE AND SPIT AFTER EACH USE active Not Available Not Available No t Available Lumigan 0.01 % eye drops Apply 1 drop every day by ophthalm ic route for 75 days. 12/03 completed Not Available Not Available Not Available Viibryd 10 mg tablet active Not Available Not Available No t Available Viibryd 20 mg tablet active COULDN' T AFFORD Not Available Not Available Not Available Wixela Inhub 250 mcg-50 mcg/dose powder for inhalation INHALE 1 PUFF 2 TIMES DAILY. RINSE MOUTH AND SPIT OUT AFTER. 03/15 completed Not Available Not Available Not Available Fluzone High-Dose Quad (PF) 240 mcg/0.7 mL IM syringe ADM 0.7ML IM UTD 06/05 completed Not Available Not Available Not Available Paxlovid 300 mg (150 mg x 2)-100 mg tablets in a dose pack TAKE 2 NIRMATRE LVIR AND 1 RITONAVI R TABLETS BY MOUTH TOGETHER TWICE DAILY FOR 5 DAYS 03/15 completed Not Available Not Available Not Available Klayesta 100,000 unit/gram topical powder APPLY TO AFFECTED AREA 3 TIMES A DAY NEEDED FOR RASH active Not Available Not Available No t Available Vitals Date Recorded Body height Heart rate Respiratory rate Oxygen saturation Oxygen saturation in Arterial blood by Pulse oximetry Systolic blood pressure Diastolic blood pressure Provider Name and Address Organization Details Last Updated DateTime 3 149.86 cm 85 /min 16 /min 97 % 97 % 121 mm[Hg] 73 mm[Hg] Meredith Dimas [facility] [employer] [facility] 3 12:42:50 Date Recorded Body height Heart rate Respiratory rate Oxygen saturation Oxygen saturation in Arterial blood by Pulse oximetry Systolic blood pressure Diastolic blood pressure Provider Name and Address Organization Details Last Updated DateTime 4 149.86 cm 58 /min 14 /min 98 % 98 % 107 mm[Hg] 60 mm[Hg] Meredith Dimas [facility] [employer] [facility] 4 15:00:16 Date Recorded Body height Heart rate Respiratory rate Oxygen saturation Oxygen saturation in Arterial blood by Pulse oximetry Systolic blood pressure Diastolic blood pressure Provider Name and Address Organization Details Last Updated DateTime 4 149.86 cm 78 /min 14 /min 98 % 98 % 131 mm[Hg] 70 mm[Hg] Meredith Dimas [facility] [employer] [facility] 4 14:48:52 Date Recorded Body height Body mass index (BMI) Body weight Heart rate Respiratory rate Body temperature Oxygen saturation Oxygen saturation in Arterial blood by Pulse oximetry Systolic blood pressure Diastolic blood pressure Provider Name and Address Organization Details Last Updated DateTime 4 149.86 cm 48.5 kg/m2 380882. 17 g 70 /min 14 /min 97.1 [degF] 98 % 98 % 120 mm[Hg] 76 mm[Hg] Janie Lorenzo [facility] [employer] [facility] 4 12:25:55 Date Recorded Body height Body mass index (BMI) Body weight Heart rate Respiratory rate Oxygen saturation Oxygen saturation in Arterial blood by Pulse oximetry Systolic blood pressure Diastolic blood pressure Provider Name and Address Organization Details Last Updated DateTime 4 149.86 cm 48.5 kg/m2 240319. 17 g 82 /min 14 /min 98 % 98 % 133 mm[Hg] 79 mm[Hg] Meredith Dimas [facility] [employer] [facility] 4 11:55:11 Social History Question Answer Notes LastModified by Organizat ion Details LastModified Time Tobacco Smoking Status Never Smoker Not Available [employer] 12/31/2022 06:40:06 What Is Your Level Of Alcohol Consumption? None [id number] Information not available 12/31/2022 What Is Your Level Of Caffeine Consumption? Moderate [id number] Information not available 12/31/2022 In The 14 Days Before Symptom Onset, Have You Had Close Contact With A Laboratory-confirm ed COVID-19 While That Case Was Ill? No [id number] Information not available 12/31/2022 In The 14 Days Before Symptom Onset, Have You Had Close Contact With A Person Who Is Under Investigation For COVID-19 While That Person Was Ill? No [id number] Information not available 12/31/2022 What Type Of Diet Are You Following? REGULAR [id number] Information not available 12/31/2022 What Is Your Occupation? [employer] [id number] Information not available 12/31/2022 What Was The Date Of Your Most Recent Tobacco Screening? 01/10/2022 [id number] Information not available 12/31/2022 Do You Use Any Illicit Or Recreational Drugs? No [id number] Information not available 12/31/2022 Has Tobacco Cessation Counseling Been Provided? No [id number] Information not available 12/31/2022 Have You Recently Traveled Abroad? No [id number] Information not available 12/31/2022 Do You Have Any Dietary Restrictions? No [id number] Information not available 12/31/2022 Do You Or Have You Ever Used Any Other Forms Of Tobacco Or Nicotine? No [id number] Information not available 12/31/2022 Sex: Unknown Functional Status None recorded. Mental Status None recorded. Family History Relationship Description Onset Age of this Age Resolved Age Notes LastModified by Organization Details LastModified Time Father Diabetes mellitus [id number] Not available 12/31/2022 06:40:48 Father Hypertensive disorder [id number] Not available 12/31/2022 06:40:48 Mother Family history of malignant neoplasm [id number] Not available 12/31/2022 06:40:48 Medical History No medical history recorded. Gynecological HistoryNo gynecological history recorded. Obstetrics History GPAL:G 0 P 0 0 0 0 Immunizations Vaccine Type Date Status Note Provider Nam e and Address Organization Details Recorded Time COVID-19, mRNA, LNP-S, PF, 100 mcg/0.5mL dose or 50 mcg/0.25mL dose 1 completed Not Available [facility] 12/31/2022 06:54:04 COVID-19, mRNA, LNP-S, PF, 100 mcg/0.5mL dose or 50 mcg/0.25mL dose 1 completed Not Available [facility] 12/31/2022 06:54:04 Influenza, split virus, quadrivalent, preservative 9 completed Not Available [facility] 12/31/2022 06:54:04 Influenza, split virus, quadrivalent, preservative 6 completed Not Available [facility] 12/31/2022 06:54:04 Tdap 0 completed Not Available [facility] 12/31/2022 06:54:04 pneumococcal polysaccharide PPV23 7 completed Not Available [facility] 12/31/2022 06:54:05 Influenza, high-dose, quadrivalent, PF 1 completed Not Available [facility] 12/31/2022 06:54:05 Influenza, high-dose, trivalent, PF 9 completed Not Available [facility] 12/31/2022 06:54:05 Influenza, split virus, quadrivalent, PF 8 completed Not Available [facility] 12/31/2022 06:54:06 Influenza, high-dose, trivalent, PF 7 completed Not Available [facility] 12/31/2022 06:54:06 Influenza, split virus, quadrivalent, preservative 5 completed Not Available [facility] 12/31/2022 06:54:06 zoster live 5 completed Not Available [facility] 12/31/2022 06:54:06 pneumococcal polysaccharide PPV23 5 completed Not Available [facility] 12/31/2022 06:54:07 Influenza, split virus, trivalent, PF 4 completed Not Available [facility] 12/31/2022 06:54:07 Influenza, split virus, quadrivalent, preservative 6 completed Not Available [facility] 12/31/2022 06:54:07 Past Encounters Encounter ID Performer Location Encounter Start Date Encounter Closed Date Diagnosis/Indication Diagnosis SNOMED-CT Code Diagnosis ICD10 Code [id number] [facility] [place] [address], [place] [address] 06/05/2021 00:00:00 06/05/2021 10:29:41 [id number] [facility] [place] [address], [place] [address] 08/08/2021 00:00:00 08/08/2021 16:01:30 [id number] [facility] [place] [address], [place] [address] 09/10/2021 00:00:00 09/10/2021 10:55:13 [id number] [facility] [place] [address], [place] [address] 10/15/2021 00:00:00 10/15/2021 10:54:12 [id number] [facility] [place] [address], [place] [address] 11/14/2021 00:00:00 11/14/2021 10:04:13 [id number] [facility] [address], [address] [address] 01/10/2022 00:00:00 01/10/2022 11:56:12 [id number] [facility] [place] [address] [place] [address], [address] [address] 01/30/2022 00:00:00 01/30/2022 13:22:17 [id number] [facility] [place] [address] [place] [address], [address] [address] 02/13/2022 00:00:00 02/13/2022 14:55:57 [id number] [facility] [place] [address] [place] [address], [address] [address] 03/13/2022 00:00:00 03/13/2022 15:16:04 [id number] [facility] [address], [address] [address] 03/20/2022 00:00:00 03/20/2022 17:03:27 [id number] [facility] [place] [address], [place] [address] 06/02/2022 00:00:00 06/02/2022 14:45:00 [id number] [facility] [address], [address] [address] 06/19/2022 00:00:00 06/19/2022 16:14:24 [id number] [facility] [place] [address], [place] [address] 08/11/2022 00:00:00 08/11/2022 11:40:34 [id number] Robel Thurman DPM [facility] [address], [address] [address] 02/05/2023 12:47:29 02/27/2023 15:49:52 Dystrophia unguium 86683314 L60.3 Foot callus 569783703 L8 4 [id number] Robel Thurman DPM [facility] [address], [address] [address] 05/12/2023 12:36:16 05/12/2023 15:13:34 Foot callus 283578520 L84 Dystrophia unguium 53847 009 L60.3 [id number] Robel Thurman DPM [facility] [address], [address] [address] 12/15/2023 14:56:16 12/21/2023 09:14:47 Dystrophia unguium 92183458 L60.3 Foot callus 665972344 L8 4 Unable to cut own toenails 203543744 Z74.1 [id number] Robel Thurman DPM [facility] [address], [address] [address] 03/15/2024 14:43:20 03/15/2024 15:18:51 Foot callus 085221955 L84 Dystrophia unguium 31156 009 L60.3 Pain in both feet 693748 5457 8816135 M79.671 M79.193 [id number] Robel Thurman DPM [facility] Podiat[facility] [address], [address] [address] 06/14/2024 12:13:54 06/14/2024 13:59:30 Pain of toe of left foot 8782736858 67788 M79.675 Callosity on toe 5077270 01 L84 Hammer toe 489713593 M20 .42 Dystrophia unguium 12698 009 L60.3 [id number] Robel Thurman DPM [facility] [address], [address] [address] 09/13/2024 11:46:44 09/13/2024 12:29:52 Dystrophia unguium 02717563 L60.3 Callosity on toe 3962286 01 L84 Hammer toe 858571793 M20 .42 Health Concerns Section Related Observation LastModified by Organization Detai ls LastModified Time None Recorded Concern Status LastModified by Organization Details LastModified Time None Recorded Advance Directives Directive None Recorded Payers Encounter Date Sequence Insurance Name Policy Number Policy El Covered Member ID El Member ID Guarantor Name 05/12/2023 1 [employer] (MEDICARE REPLACEMENT PPO) [id number] Sera Loren Melinda [id number] Sera F Melinda 12/15/2023 1 [employer] (MEDICARE REPLACEMENT PPO) [id number] Sera Loren Melinda [id number] Sera F Melinda 03/15/2024 1 [employer] (MEDICARE REPLACEMENT PPO) [id number] Sera Loren Melinda [id number] Sera F Melinda 06/14/2024 1 [employer] (MEDICARE REPLACEMENT PPO) [id number] Sera Lawrence [id number] Sera Lawrence 09/13/2024 1 [id number] (MEDICARE REPLACEMENT PPO) [id number] Sera Lawrence [id number] Sera Lawrence Notes Date Note Type Note Provider Name and Address Organization Details Recorded Time 3 text/html . Patient is a 68-year-old female obese who returns the office for follow-up on foot pain. Patient states that she has painful calluses and elongated toenails. Patient denies any open wounds or infection of the feet. Patient denies any other pedal complaints and states that she has pain when she is walking. Robel Thurman DPM [address], [address], [place], [address], [employer] 05/12/2023 14:34:25 4 text/html Patient returns for follow up on routine foot care. Patient states your nails have become thick and long and she is unable to cut them. Patient also has calluses to the distal aspect of her right second and third and left second toes. Patient states her nails are painful with pressure and walking. Patient denies any any redness or drainage from the toes. Patient denies any other complaints. Robel Thurman DPM [address], [address], [place], [address], [employer] 12/21/2023 09:06:43 4 text/html Patient returns for follow-up on painful toenails and calluses feet. Patient denies any signs of infection. Patient denies any other complaints. Robel Thurman DPM [address], [address], [place], [address], [employer] 03/15/2024 15:15:24 4 text/html . Patient is a 69-year-old female who returns for follow-up on routine foot care she states she has a painful callus to the left 5th toe and lateral 5th metatarsophalangeal joint. Patient denies any open wounds to the area she states the pain is sharp nature due to the callus. Patient states her nails are also long and she would like to have them cut. Robel Thurman DPM [address], [facility] [address], [place], [address], [employer] 06/14/2024 13:41:38 4 text/html . Patient is a 69-year-old female who presents the office with complaints of a painful callus to the left 5th toe. Patient states that she denies any open wounds but states she has a painful sharp pain due to a callus. Patient has a mild hammertoe deformity which is causing frictional rubbing in shoe gear she states she has tried different shoe gear as well as wide shoe gear but continues to have a problem I did review conservative options as well as recommending soft mesh style toe box shoes if the patient continues have this problem I will recommend surgery which I explained to the patient she at this point does not want to undergo surgery. Patient states her nails are also long would like to have them cut. Robel Thurman DPM [address], [facility] [address], [place], [address], [employer] 09/13/2024 12:29:51 OBGyn Episode No OBEpisode recorded.
--- OUTSIDE RECORDS SUMMARY | 2024-10-17 23:54 | XMS_ITS | Continuity of Care Document ---
Author Organization [place] [facility] [place] Address [address] [place] [address] Care Team Providers Care Venue Attendant Name Role Phone MELISSA ANNETTE Primary Care Provider Assessment Encounter Date Assessment Date Assessment LastModified by Organization Details LastModified Time 09/13/2024 09/13/2024 This note is dictated and transcribed by [employer]. Authors Motivational variances may occur. Despite proofreading, typographical errors may occur. Occasional wrong-word or 'rrccb-x-dyab' substitutions may have occurred due to the inherent limitations of voice recording. Read the chart carefully and recognize, using context, where substitutions have occurred. [email or web address] Not available 09/13/2024 11:58:26 Plan of Treatment Reminders Order Date Submit Date Provider Last Modified By Organization Details Last Modified Time Details Appointments Establish ed Patient 15 2024 11:00A Crystal Thurman DPM Not available Not available Not available Lab None recorded. Referral None recorded. Procedures None recorded. Surgeries None recorded. Imaging None recorded. Medication Orders None recorded. Patient TargetsNo targets recorded. Patient InstructionsNo instructions recorded. Reason for Referral None Reported. Problems Name Problem SNOMED Code Status Onset Date Resolution Date Notes Provider Name and Address Organization Details Recorded Time Sprain of right ankle 72698371117 471635 Active 2021 Not Available [facility] 3 06:46:05 Injury of knee 591174587 Completed Not Available [facility] 3 06:46:06 Disorder of thyroid gland 47053791 Active 2020 Not Available [facility] 3 06:46:06 Pain in both feet 32478080692 308483 Active 2021 Not Available [facility] 3 06:46:06 Serum alkaline phosphata se above reference range 137948700 Active 2021 Not Available [facility] 3 06:46:06 Impacted cerumen 10268740 Completed Not Available [facility] 3 06:46:06 Asthma 596785847 Active Not Available [facility] 3 06:46:06 Boil of back 152690407 Completed 201611/03/2017 Not Available [facility] 3 06:46:06 Celluliti s and abscess of back 755567653 Completed 201611/03/2017 Not Available [facility] 3 06:46:07 Closed fracture proximal humerus, greater tuberosit y 362091889 Active Not Available [facility] 3 06:46:07 Feeling stressed 188841140 Completed Not Available [facility] 3 06:46:07 Foot callus 165788633 Active 2021 Not Available [facility] 3 06:46:07 Gastroeso phageal reflux disease 207115601 Active Not Available [facility] 3 06:46:07 Low back pain 746705606 Active Not Available [facility] 3 06:46:07 Unable to cut own toenails 933749789 Active 2021 Not Available [facility] 3 06:46:07 History of SARS-CoV- 2 85304831280 4148732 Active 2020 Not Available [facility] 3 06:46:08 Current tear of medial cartilage AND/OR meniscus of knee Active Not Available [facility] 3 06:46:08 Knee pain Active Not Available [facility] 3 06:46:08 Pain in right foot 34486985472 9107 Active 2021 Not Available [facility] 3 06:46:08 Tendiniti s of left posterior tibial tendon 31874287544 9100 Active 2021 Not Available [facility] 3 06:46:08 Tendiniti s of right posterior tibial tendon 46919719254 9102 Active 2021 Not Available [facility] 3 06:46:08 Bronchiti s 07623804 Completed Not Available [facility] 3 06:46:09 Depressiv e disorder 27186971 Active Not Available [facility] 3 06:46:09 Sinusitis 23705093 Completed Not Available [facility] 3 06:46:09 Hypertens jennifer disorder 02666603 Active Not Available [facility] 3 06:46:09 Osteoarth ritis 696148982 Active 2016 Not Available [facility] 3 06:46:09 Body mass index 40+ - severely obese 592518557 Active 2020 Not Available [facility] 3 06:46:10 Obesity 989675081 Active Not Available [facility] 3 06:46:10 Seasonal allergy 546180443 Active Not Available [facility] 3 06:46:10 Anxiety 61966838 Active Not Available [facility] 3 06:46:10 Dysuria 79909246 Completed Not Available [facility] 3 06:46:11 Acute ankle pain 29798999761 105 Active 2021 Not Available [facility] 3 06:46:11 Peroneal tendiniti s 46912588 Active 2021 Not Available [facility] 3 06:46:11 Fracture of humerus 58867246 Active Not Available [facility] 3 06:46:11 Urinary tract infectiou s disease 64467352 Completed Not Available [facility] 3 06:46:11 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 2016 Not Available [facility] 3 06:46:12 Hyperglyc emia 42258881 Active 2016 Not Available [facility] 3 06:46:12 COVID-19 576680698 Active 2020 Not Available [facility] 3 06:46:12 Dystrophi a unguium 21322248 Active 2021 Not Available [facility] 3 06:46:12 Pulmonary emphysema 89025749 Active 2021 Not Available [facility] 3 06:46:13 Pain of toe of left foot 18604170555 9108 Active 2023 Robel Thurman DPM [address], [place], [address] , [facility] 4 13:40:00 Callosity on toe 957702344 Active 2023 Robel Thurman DPM [address], [place], [address] , [facility] 4 13:40:05 Hammer toe 454064066 Active 2023 Robel Thurman DPM [address], [place], [address] , [facility] 4 13:40:49 Hammer toe 638542787 Active 2023 Robel Thurman DPM [address], [place], [address] , [facility] 4 12:28:17 Problem Notes None recorded. Procedures Surgical History Date Name Laterality Status Provider Name and Address Organization Details Recorded Time 09/13/20 24 Nail Debridement completed Robel Thurman DPM [address], [place], [address], [facility] 09/13/2024 12:28:07 09/13/20 24 Callus Debridement, One completed Robel Thurman DPM [address], [place], [address], [facility] 09/13/2024 12:27:58 06/14/20 24 Nail Debridement completed Robel Thurman DPM [address], [place], [address], [facility] 06/14/2024 13:39:35 06/14/20 24 Callus Debridement 2-4 completed Robel Thurman DPM [address], [place], [address], [facility] 06/14/2024 13:39:39 03/15/20 24 Nail Debridement completed [address], [place], [address], [facility] 03/15/2024 15:12:16 03/15/20 24 Callus Debridement 2-4 completed Robel Thurman DPM [address], [place], [address], [facility] 03/15/2024 15:12:08 12/15/19 24 Nail Debridement completed [address], [place], [address], [facility] 12/21/2023 09:06:12 12/15/19 24 Callus Debridement 2-[address], [place], [address], [facility] 12/21/2023 09:06:02 05/12/20 23 Nail Debridement completed Robel Thurman DPM [address], [place], [address], [facility] 05/12/2023 14:33:00 05/12/20 23 Callus Debridement 2-4 completed Robel Thurman DPM [address], [place], [address], [facility] 05/12/2023 14:33:05 02/06/20 23 Nail Debridement completed [address], [place], [address], [facility] 02/27/2023 15:11:10 02/06/20 23 Callus Debridement, One completed Robel Thurman DPM [address], [place], [address], [place] [facility] 02/27/2023 15:11:03 Knee Replacement completed Not Available [facility] 12/31/2022 06:40:47 Imaging Results None recorded. Procedure Notes None recorded. Medical Equipment None Reported. Allergies Allergen ID Allergen Name Allergen Category Reaction Reaction Severity Criticality Documentation Date Start Date Code Code System Note Provider Name and Address Organization Details Recorded Time 90228 Viibryd medicatio n diarrhea Not available Not available 12/31/2022 42651 73 RxNorm Not Available [facility] 3 06:54:24 19964 Vasotec medicatio n cough Not available Not available 12/31/2022 68462 1 RxNorm Not Available [facility] 3 06:54:24 82429 trazodone medicatio n other Not available Not available 12/31/2022 64083 RxNorm reflu x Not Available [facility] 3 06:54:24 01073 Pristiq medicatio n Not available Not available Not available 12/31/2022 60396 2 RxNorm Not Available [facility] 3 06:54:24 33875 bacitraci n / neomycin / polymyxin B medicatio n Not available Not available Not available 12/31/2022 71813 9 RxNorm Not Available [facility] 3 06:54:24 37445 lisinopri l medicatio n other Not available Not available 12/31/2022 22493 RxNorm tired Not Available [facility] 3 06:54:25 78067 Levaquin medicatio n nausea Not available Not available 12/31/2022 92026 2 RxNorm Not Available [facility] 3 06:54:25 78838 Effexor medicatio n Not available Not available Not available 12/31/2022 59523 2 RxNorm Not Available [facility] 3 06:54:25 Medications Name Sig Start Date [...] Take by injectio n route. 10/10 completed [facility]# [id number] Not Available Not Available Not Available [...] Not Available Not Available Fluzone High-Dose Quad 2020-21 (PF) 240 mcg/0.7 mL IM syringe ADM [...] t Available Vitals Date Recorded Body height Body mass index (BMI) Body weight Heart rate Respiratory rate Oxygen saturation Oxygen saturation in Arterial blood by Pulse oximetry Systolic blood pressure Diastolic blood pressure Provider Name and Address Organization Details Last Updated DateTime 4 149.86 cm 48.5 kg/m2 126947. 17 g 82 /min 14 /min 98 % 98 % 133 mm[Hg] 79 mm[Hg] Meredith [facility] 4 11:55:11 Social History Question Answer Notes LastModified by [employer] Details LastModified Time Tobacco Smoking Status Never Smoker Not Available [facility] 12/31/2022 06:40:06 What Is Your Level Of Alcohol Consumption? None [id number] Information not available 12/31/2022 What Is Your Level Of Caffeine Consumption? Moderate [id number].[id number] 9100 Information not available 12/31/2022 In The 14 Days Before Symptom Onset, Have You Had Close Contact With A Laboratory-confirm ed COVID-19 While That Case Was Ill? No [id number] 1992 Information not available 12/31/2022 In The 14 Days Before Symptom Onset, Have You Had Close Contact With A Person Who Is Under Investigation For COVID-19 While That Person Was Ill? No [id number].[id number] 0057 Information not available 12/31/2022 What Type Of Diet Are You Following? 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 01/10/2022 [id number].[id number] 6138 Information not available 12/31/2022 Do You Use Any Illicit Or Recreational Drugs? No MIGRATION.551924 3627 Information not available 12/31/2022 Has Tobacco Cessation Counseling Been Provided? No MIGRATION.981824 4112 Information not available 12/31/2022 Have You Recently Traveled Abroad? No MIGRATION.302334 0775 Information not available 12/31/2022 Do You Have Any Dietary Restrictions? No MIGRATION.898424 1834 Information not available 12/31/2022 Do You Or Have You Ever Used Any Other Forms Of Tobacco Or Nicotine? No MIGRATION.810274 0043 Information not available 12/31/2022 Sex: Unknown Functional Status None recorded. Mental Status None recorded. Family History Relationship Description Onset Age of this Age Resolved Age Notes LastModified by Organization Details LastModified Time Father Diabetes mellitus [id number] Not available 12/31/2022 06:40:48 Father Hypertensive disorder [id number].938 [id number] Not available 12/31/2022 06:40:48 Mother Family history of malignant neoplasm [id number].208 [id number] Not available 12/31/2022 06:40:48 Medical History No medical history recorded. Gynecological HistoryNo gynecological history recorded. Obstetrics History GPAL:G 0 P 0 0 0 0 Immunizations Vaccine Type Date Status Note Provider Nam e and Address Organization Details Recorded Time COVID-19, mRNA, LNP-S, PF, 100 mcg/0.5mL dose or 50 mcg/0.25mL dose 1 completed Not Available [facility] 12/31/2022 06:54:04 COVID-19, mRNA, LNP-S, PF, 100 mcg/0.5mL dose or 50 mcg/0.25mL dose 1 completed Not Available [facility] 12/31/2022 06:54:04 Influenza, split virus, quadrivalent, preservative 9 completed Not Available [facility] 12/31/2022 06:54:04 Influenza, split virus, quadrivalent, preservative 6 completed Not Available [facility] 12/31/2022 06:54:04 Tdap 0 completed Not Available [facility] 12/31/2022 06:54:04 pneumococcal polysaccharide PPV23 7 completed Not Available [facility] 12/31/2022 06:54:05 Influenza, high-dose, quadrivalent, PF 1 completed Not Available [facility] 12/31/2022 06:54:05 Influenza, high-dose, trivalent, PF 9 completed Not Available [facility] 12/31/2022 06:54:05 Influenza, split virus, quadrivalent, PF 8 completed Not Available [facility] 12/31/2022 06:54:06 Influenza, high-dose, trivalent, PF 7 completed Not Available [facility] 12/31/2022 06:54:06 Influenza, split virus, quadrivalent, preservative 5 completed Not Available [facility] 12/31/2022 06:54:06 zoster live 5 completed Not Available [facility] 12/31/2022 06:54:06 pneumococcal polysaccharide PPV23 5 completed Not Available [facility] 12/31/2022 06:54:07 Influenza, split virus, trivalent, PF 4 completed Not Available [facility] 12/31/2022 06:54:07 Influenza, split virus, quadrivalent, preservative 6 completed Not Available [facility] 12/31/2022 06:54:07 Past Encounters Encounter ID Performer Location Encounter Start Date Encounter Closed Date Diagnosis/Indication Diagnosis SNOMED-CT Code Diagnosis ICD10 Code [id number] Robel Thurman DPM [facility] [place] [address] [facility], [address] [address] 09/13/2024 11:46:44 09/13/2024 12:29:52 Dystrophia unguium 97306394 L60.3 Callosity on toe 20100209 L84 Hammer toe 064265380 M20 .42 Health Concerns Section Related Observation LastModified by Organization Detai ls LastModified Time None Recorded Concern Status LastModified by Organization Details LastModified Time None Recorded Payers Encounter Date Sequence Insurance Name Policy Number Policy El Covered Member ID El Member ID Guarantor Name 09/13/2024 1 [employer] (MEDICARE REPLACEMENT PPO) [id number] Sera Lawrence [id number] Sera Lawrence Notes Date Note Type Note Provider Name and Address Organization Details Recorded Time 09/13/2024 text/html . Patient is a 69-year-old female [...] have them cut. Robel Thurman DPM [address] [facility] [facility] [address], [place], [address], [facility] [employer] 09/13/2024 12:29:51 OBGyn Episode No OBEpisode recorded.
--- OUTSIDE RECORDS SUMMARY | 2024-10-17 23:54 | XMS_ITS | Clinical Summary ---
Author Organization [facility] Address [address] [place] [address] Phone Care Team Providers Care Paint Specialist Name Role Phone Chio Benítez MESHA Primary Care Provider [phone] Social History Tobacco Use Types Packs/Day Years Used Date Smoking Tobacco: Never Assessed Sex and Gender Information Value Date Recorded Sex Assigned at Not on file Gender Identity Not on file Sexual Orientation Not on file Plan of Treatment Health Maintenance Due Date Last Done Comments BREAST CANCER SCREENING 1994 COLORECTAL SCREENING 1999 Colorectal Cancer Screening 1999 FIT-DNA Q 3 years 1999 FIT/FOBT Q 1 year 1999 Flex Sig/CT Colonography Q 5 years 1999 ZOSTER VACCINE (1 of 2) 2004 RSV VACCINE (60+ or ) (1 - Risk 60-74 years 1-dose series) 2014 PNEUMOCOCCAL VACCINE 65+ YEA RS (2 of 2 - PCV) 11/10/2015 11/10/2014, 08/19/2007 OSTEOPOROSIS SCREENING 2019 DTAP/TDAP/TD VACCINES (2 - T d or Tdap) 09/23/2020 09/23/2010 INFLUENZA VACCINE (#1) 2024 , 08/24/2019, 08/09/2018, Additional history exists Care Teams Paint Specialist Relationship Specialty Start Date End Date Chio Benítez ANP [address] [address] PCP - General Nurse Practitioner Adult Health 09/07/19
--- OUTSIDE RECORDS SUMMARY | 2024-10-17 23:54 | XMS_ITS | Encounter Summary ---
Author Organization [facility] Address [address] [place] [address] Care Team Providers Care Mail Sorting Supervisor Name Role Phone Chio Benítez MESHA Primary Care Provider Encounter Details Date Type Department Care Team (Latest Contact Info) Description 09/07/2019 9:30 AM SUPERVISOR BENZENE REFINING - 09/07/2019 11:59 PM SUPERVISOR BENZENE REFINING Hospital Encounter [facility] [address] [place] [address] [place] [address] Edgar Ames MD [address] [place] [address] Discharge Disposition: Home or Self Care Social History Tobacco Use Types Packs/Day Years Used Date Smoking Tobacco: Never Assessed Sex and Gender Information Value Date Recorded Sex Assigned at Not on file Gender Identity Not on file Sexual Orientation Not on file documented as of this encounter Plan of Treatment Not on file documented as of this encounter Procedures Procedure Name Priority Date/Time Associated Diagnosis Comments XR KNEE 4+ VW LEFT Routine 09/07/2019 10 :00 AM SUPERVISOR BENZENE REFINING Left knee pain, unspecified chronicity documented in this encounter Results * XR KNEE 4+ VW LEFT (09/07/2019 10:00 AM SUPERVISOR BENZENE REFINING) Anatomical Region Laterality Modality Lower Extremity Computed Radiogr aphy 09/07/2019 10:0 1 AM SUPERVISOR BENZENE REFINING Impressions 09/07/2019 10:33 AM SUPERVISOR BENZENE REFINING IMPRESSION: 1. Severe left knee osteoarthritis. DICTATION LOCATION: Location 1 - [facility] Narrative 09/07/2019 10:33 AM SUPERVISOR BENZENE REFINING EXAMINATION: XR KNEE 4+ VW LEFT HISTORY: See Diagnosis. ?? Left knee pain, unspecified chronicity FINDINGS: No prior study is available for comparison at the time of this dictation. Alignment is normal. No acute fracture is identified. There is severe tricompartmental left knee osteoarthritis, particularly in the medial tibiofemoral compartment and patellofemoral compartments. Procedure Note Neno Cloud MD - 09/07/2019 EXAMINATION: XR KNEE 4+ VW LEFT HISTORY: See Diagnosis. Left knee pain, unspecified chronicity FINDINGS: No prior study is available for comparison at the time of this dictation. Alignment is normal. No acute fracture is identified. There is severe tricompartmental left knee osteoarthritis, particularly in the medial tibiofemoral compartment and patellofemoral compartments. IMPRESSION: 1. Severe left knee osteoarthritis. DICTATION LOCATION: Location 1 - [facility] Edgar Ames MD DIAGNOSTIC IMAGING ORDERABLES documented in this encounter Visit Diagnoses Diagnosis Left knee pain, unspecified chronicity documented in this encounter Care Teams Mail Sorting Supervisor Relationship Specialty Start Date End Date Chio Benítez ANP [address] [address] PCP - General Nurse Practitioner Adult Health 09/07/19 documented as of this encounter
--- OUTSIDE RECORDS SUMMARY | 2024-10-17 23:54 | XMS_ITS | Continuity of Care Document ---
Author Organization [facility] Address [address] [place] [address] Phone Care Team Providers Care Plumbing Engineering Draftsperson Name Role Phone Julia Jenkins Unavailable Unavailable Procedures Procedure Date Visual Field Examination(s) Office/outpatient Visit, Est Office/outpatient Visit, Est Fundus Photography W/ Report Visual Field Examination(s) Office/outpatient Visit, Est Office/outpatient Visit, Est Fundus Photography W/ Report Office/outpatient Visit, Est Fundus Photography W/ Report Advance Directives Directive Yes / No Effective Date File Name No Information Encounters Encounter Description Practice Location Reason(s) For Visit Diagnoses Date Provider Providers Copied on Encounter [facility], [id number] [place] [address] [address], [place], [place], [id number], [place] tel:[phone] SEC [facility] No Information 0 Alice Dumont. [address] , [address], [place], [address], [place]. tel:[phone] Referring Provider: Julia Ernandez, [address], [place], [address]. tel:[phone] Office/outpat ient Visit, Est [facility], [address], [place], [place], [id number], tel:[phone] [facility] No Information 8-200 9 Jenkins Julia. [address] , [address], [place], [place], [facility][note 3], [place]. tel:[phone] Office/outpat ient Visit, [facility], [address] [place] [address] [address], [place], [place], [id number], [place] tel:[phone] [facility] No Information March-0 8-200 9 Alice Dumont. [address] , [address], [place], [place], [facility][note 3], [place]. tel:[phone] Referring Provider: Julia Ernandez, [address], [place], [place], [facility][note 3]. tel:[phone] [facility], [address] [place] [address] [address], [place], [place], [id number], [place] tel:[phone] [facility] No Information 0 3-200 8 Alice Carrillo [address] , [address], [place], [place], [facility][note 3], [place]. tel:[phone] Referring Provider: Julia Ernandez, [address], [place], [place], [facility][note 3]. tel:[phone] Office/outpat ient Visit, [facility], [address] [place] [address] [address], [place], [place], [id number], [place] tel:[phone] SEC [facility] No Information 0 3200 8 Alice Carrillo [address] , [address], [place], [place], [facility][note 3], [place]. tel:[phone] Office/outpat ient Visit, [facility], [address] [place] [address] [address], [place], [place], [id number], [place] tel:[phone] SEC [facility] No Information 3 0-200 7 Alice [address] , [address], [place], [place], [facility][note 3], [place]. tel:[phone] Referring Provider: Michael [address], [place], [address]. tel:[phone] Office/outpat ient Visit, [facility], [address], [place], [place], [id number], [place] tel:[phone] [facility] [place] No Information 5200 7 Alice Dumont. [address] [facility] , [address], [place], [address], [place]. tel:[phone] Referring Provider: Jazmin Wheeler[address] [facility] [place] [address], [place], [address]. tel:[phone] Family History Family Member Type Diagnosis Age At Onset No Information Payers Payer name Insurance type Covered libertarian ID Authoriza tion(s) No Information Social History Type Description Quantity Date Captured Comments Sex Female Smoking Status No Information Chief Complaint And Reason For Visit No Information Reason For Referral Reason For Referral No Information History Of Present Illness Encounter Date Complaint History Of Prese nt Illness No Information Functional Status Date Functional Assessmen t No Information Instructions Date Instruction Additional Infor mation No Information Assessments Type Assessment Date No Information Patient Care Teams Name Effective Dates (start - stop) Status Members No Information
== END 2024-10-14 14:43 | disposition home or self-care (01) ==
LOC: ANHIMG 14:56
PROVIDERS: PCP Nurse Practitioner Family; Visit Provider Nurse Practitioner Family
DX: J81.0 Acute pulmonary edema (principal)
CPT/HCPCS: 71046

== ENCOUNTER 2024-10-21 13:04 | Emergency (ER) | payer MEDICARE, SELFPAY ==
[2024-10-21] VITALS (15 sets, daily range): BP systolic 103–132; BP diastolic 61–84; PULSE 80–106; RESP 15–24; TEMP 36.4; O2SAT 97–100
--- NOTE | ~2024-10-21 | XR_ITS ---
Clinical Indication: Shortness of AP and lateral views of the chest: Comparison: 10/14/2024 Findings: There is minimal residual bibasilar pulmonary edema/atelectasis, left worse than right. Ca rdiomediastinal silhouette is within normal limits. Bones and soft tissues are unremarkable. Impression: Probable minimal bibasilar pulmonary edema/atelectasis, left worse than right. Correlate clinically f or pneumonia. Reviewed, dictated and finalized at location . [facility] Impression: Probable minimal bibasilar pulmonary edema/atelectasis, left worse than right. Correlate clinically for pneumonia.
--- NOTE | 2024-10-21 13:22 | ECG_ITS ---
Test Date: 2024-10-21 13:35:00 Measurements Intervals [place] Rate: 85 P: 16 GA: 134 QRS: 15 QRSD: 81 T: 28 QT: 347 QTc: 414 Interpretive Statements SINUS RHYTHM No previous ECG available for comparison Electronically Signed On 10-21-2024 15:47:18 TINT LAYER by Mateo Hutchins M.D.
[2024-10-21] MEDS: IPRATROPIUM BR 0.02% INH SOLN 0.5 MG/2.5 ML VIAL 1 MG INHALATION (13:50)
[2024-10-21] MEDS: ALBUTEROL SULFATE NEB 2.5 MG/3 ML INH 10 MG INHALATION (13:50)
[2024-10-21 13:57] LABS: Basophils Percent Auto 0.4 % (0.2-1.2); Eosinophils Absolute Auto 0.2 K/mm3 (0-0.3); Eosinophils Percent Auto 2.3 % (0-4.4); Hematocrit 39.6 % (37.0-47.0); Hemoglobin 13.3 g/dL (12.0-15.0); Immature Granulocyte Absolute 0.01 K/mm3 (0.00-0.031); Immature Granulocyte Percent A 0.1 % (0-0.5); Lymphocytes Absolute Auto 1.09 K/mm3 (0.9-3.2); Lymphocytes Percent Auto 15.5 % (18.3-44.2); Mean Corpuscular HGB Conc 33.6 g/dl (32-36); Mean Corpuscular Volume 92.3 fl (80-100); Mean Platelet Volume 9.7 fl (7.4-10.4); Monocytes Absolute Auto 0.5 K/mm3 (0.1-0.6); Monocytes Percent Auto 6.8 % (2.6-8.5); Neutrophils Absolute Auto 5.3 K/mm3 (1.3-6.7); Neutrophils Percent Auto 74.9 % (45.5-73.1); Platelet Count Result 189 k/mm3 (150-375); Red Blood Count 4.29 M/mm3 (4.2-5.4); Red Cell Distribution Width 13.5 % (11.5-14.5)
[2024-10-21 14:06] LABS: Lactic Acid Reflex 2.2 mmol/L (0.7-2.0)
[2024-10-21 14:13] LABS: Alanine Aminotransferase 22 U/L (6-35); Albumin Level 3.5 g/dL (3.5-5.1); Alkaline Phosphatase 182 U/L (38-126); Anion Gap 3 mmol/L (4-12); Aspartate Amino Transferase 26 U/L (14-36); Bilirubin,Total 0.8 mg/dL (0.2-1.3); Blood Urea Nitrogen 7 mg/dL (7-17); Calcium 8.7 mg/dL (8.4-10.2); Carbon Dioxide 24 mmol/L (22-30); Chloride 106 mmol/L (98-107); Estimated Glomerular Filt Rate > 60; Glucose 89 mg/dL (65-110); Potassium 3.5 mmol/L (3.4-5.0); Sodium 133 mmol/L (137-145)
[2024-10-21] MEDS: predniSONE 20 MG TABLET 60 MG PO (15:22)
[2024-10-21] MEDS: IPRATROPIUM 0.5 MG/ALBUTEROL SULFATE 2.5 MG AMPUL.NEB 3 ML INHALATION (15:23)
--- NOTE | 2024-10-21 16:02 | ED.GENADULT ---
HPI - General Adult General Chief complaint: Shortness of Breath/Dyspnea Stated complaint: Sent by PCP for CXR Time Seen by Provider: 10/21/24 13:13 History of Present Illness HPI narrative: Patient is a 6-year-old female who presents ER with cough. Ongoing for 3 weeks. PCP sent her in for a chest x-ray. Patient reports exertional dyspnea. No fevers or chills. No chest pain. She had been on a course of steroids but has not been on them for over week. She does have a nebulizer at home but is running out of medication. Has also been on augmentin and azithromycin. Related Data Allergies Allergy/AdvReac Type Severity Reaction Status Date / Time Aminoglycosides Allergy Severe SWELLING Verified 10/12/24 08:08 AND BLISTERS neomycin Allergy Severe SWELLING Verified 10/12/24 08:08 AND BLISTERS bacitracin Allergy Unknown Unknown Verified 10/12/24 08:08 enalapril Allergy Unknown Unknown Verified 10/12/24 08:08 lisinopril Allergy Unknown Unknown Verified 10/12/24 08:08 polymyxin B Allergy Unknown Unknown Verified 10/12/24 08:08 trazodone Allergy Unknown Unknown Verified 10/12/24 08:08 venlafaxine Allergy Unknown Unknown Verified 10/12/24 08:08 vilazodone Allergy Unknown Unknown Verified 10/12/24 08:08 Review of Systems Review of Systems: All systems reviewed & are unremarkable except as noted in HPI and below Constitutional: Constitutional: Reports no additional constitutional complaints ENT: Reports system reviewed and no additional complaints, except as documented Cardiovascular: Cardiovascular: Reports no additional cardiovascular complaints Respiratory: Respiratory: Reports cough, Reports dyspnea and Reports wheezing Gastrointestinal: Gastrointestinal: Reports no additional gastrointestinal complaints [facility] Past Medical History Medical History (Updated 10/21/24 @ 16:42 by Yosvany Stiles MD) Elevated TSH Right knee pain Low blood potassium Hx of colonic polyps Colon cancer screening Screening for osteoporosis Breast cancer screening Elevated serum creatinine BMI 45.0-49.9, adult Prediabetes Elevated fasting glucose GREGG on CPAP BMI 40.0-44.9, adult GERD (gastroesophageal reflux disease) Anxiety Pneumonia History of cataract Essential hypertension Former smoker Patient quit 35 years ago. She smoked for 10 years 1 pack per day History of asthma Rhinitis Seasonal allergic rhinitis Sleep disturbance Snoring Asthma Hypertension Surgical History Surgical History History of knee surgery Family History Family History Father Diabetes mellitus Patient's father is in good health Sibling Malignant neoplasm of prostate, Onset Age: 65 Mother Family history of lung cancer, Onset Age: 54 Social History Social History (Updated 10/12/24 @ 08:09 by Severiano Santos [facility]) Smoking packs per day: 0.5 Smoking cigarettes per day: 10.0 Years smoked: 7 Smoking pack-years: 3.50 Smoking status: Never smoker Tobacco type: cigarettes Second hand tobacco smoke exposure: No Smoking end date: 11/02/82 Additional smoking assessment comments: started smoking at age 14 Alcohol intake: never Substance use: never Substance use type: does not use Do You Feel Safe in your Home?: Yes Lack of Transportation: No Lack of Food: Never True Current Housing: I Have Housing Concerned About Future Housing: No Difficulty Paying Gas/Electric Bills: No Difficulty Paying for Meds: No Currently Unemployed: No Education: Trade/Vocational Certificate Difficulty w/ Childcare or Family Care: No Living arrangements: with family Spiritual care concerns: No Exam Narrative: GENERAL: Well-appearing, well-nourished, and in no acute distress. HEAD: Normocephalic, atraumatic. ENT: Mucous membranes moist. NECK: Supple. CHEST: Coarse wheezing bilaterally. No respiratory distress. HEART: Regular rate and rhythm. Normal peripheral pulses. ABDOMEN: Soft, nontender, nondistended. EXTREMITIES: Normal range of motion. No edema. SKIN: Warm, dry, no rash. NEURO: No focal deficits. Alert and oriented x3. PSYCH: Normal mood and affect. Course Course Emergency Course: wheezing markedly improved after 2 separate nebulizer treatments. She will be given oral steroids and discharged home with supportive care. Labs reassuring. Very minimally elevated lactic acid. Vital Signs Vital signs: Vital Signs Temperature 97.6 F 10/21/24 13:09 Pulse Rate 90 10/21/24 13:09 Respiratory Rate 20 10/21/24 13:09 Blood Pressure 130/72 10/21/24 13:09 Pulse Oximetry 97 10/21/24 13:09 Oxygen Delivery Room Air 10/21/24 13:09 Temperature 97.6 F 10/21/24 15:45 Pulse Rate 105 H 10/21/24 15:45 Respiratory Rate 17 10/21/24 15:45 Blood Pressure 119/70 10/21/24 15:45 Pulse Oximetry 99 10/21/24 15:45 Oxygen Delivery Room Air 10/21/24 13:16 Medical Decision Making Vital Signs Vital Signs: Vital Signs Temperature 97.6 F 10/21/24 13:09 Pulse Rate 90 10/21/24 13:09 Respiratory Rate 20 10/21/24 13:09 Blood Pressure 130/72 10/21/24 13:09 Pulse Oximetry 97 10/21/24 13:09 Oxygen Delivery Room Air 10/21/24 13:09 Temperature 97.6 F 10/21/24 15:45 Pulse Rate 105 H 10/21/24 15:45 Respiratory Rate 17 10/21/24 15:45 Blood Pressure 119/70 10/21/24 15:45 Pulse Oximetry 99 10/21/24 15:45 Oxygen Delivery Room Air 10/21/24 13:16 Lab Data 10/21/24 13:34 10/21/24 13:34 Labs: Lab Results 10/21/24 Range/Units 13:34 WBC 7.0 (4.5-10.0) K/mm3 RBC 4.29 (4.2-5.4) M/mm3 Hgb 13.3 (12.0-15.0) g/dL Hct 39.6 (37.0-47.0) % MCV 92.3 (80-100) fl MCH 31.0 (26-34) pg MCHC 33.6 (32-36) g/dl RDW 13.5 (11.5-14.5) % Plt Count 189 (150-375) k/mm3 MPV 9.7 (7.4-10.4) fl Immature Gran % (Auto) 0.1 (0-0.5) % Neut % (Auto) 74.9 H (45.5-73.1) % Lymph % (Auto) 15.5 L (18.3-44.2) % [place] % (Auto) 6.8 (2.6-8.5) % Eos % (Auto) 2.3 (0-4.4) % Baso % (Auto) 0.4 (0.2-1.2) % Lymph # (Auto) 1.09 (0.9-3.2) K/mm3 [place] # (Auto) 0.5 (0.1-0.6) K/mm3 Eos # (Auto) 0.2 (0-0.3) K/mm3 Baso # (Auto) 0.0 (0.0-0.1) K/mm3 Abs Immat Gran (auto) 0.01 (0.00-0.031) K/mm3 Absolute Neuts (auto) 5.3 (1.3-6.7) K/mm3 Absolute Nucleated RBC 0.000 (0.0-0.012) K/mm3 Nucleated RBC % 0.0 (0.0-0.2) % Sodium 133 L (137-145) mmol/L Potassium 3.5 (3.4-5.0) mmol/L Chloride 106 (98-107) mmol/L Carbon Dioxide 24 (22-30) mmol/L Anion Gap 3 L (4-12) mmol/L BUN 7 (7-17) mg/dL Creatinine 0.90 (0.7-1.0) mg/dL Estim Creat Clear Calc Not Reportable Estimated GFR > 60 (59 - ) Glucose 89 (65-110) mg/dL Lactic Acid 2.2 H (0.7-2.0) mmol/L Calcium 8.7 (8.4-10.2) mg/dL Total Bilirubin 0.8 (0.2-1.3) mg/dL AST 26 (14-36) U/L ALT 22 (6-35) U/L Alkaline Phosphatase 182 H (38-126) U/L Total Protein 6.0 L (6.3-8.2) g/dL Albumin 3.5 (3.5-5.1) g/dL Imaging Data Radiologist's impression: ITS Impressions Chest X-Ray 10/21/24 13:59 Impression: Probable minimal bibasilar pulmonary edema/atelectasis, left worse than right. Correlate clinically for pneumonia. Discharge Plan Discharge Clinical Impression: Bronchitis Patient Disposition: Home, Self-Care Condition: Stable Instructions: Acute Bronchitis (ED) Additional Instructions: Please return to the emergency department if you develop severe and persistent chest pain, difficulty breathing, dizziness, leg swelling or if you are coughing up blood as these can be signs of a medical emergency. Please call your doctor for a follow up appointment to determine the need for further testing. Patient Language: Cymraes Prescriptions: New ipratropium-albuterol 0.5 mg-3 mg(2.5 mg base)/3 mL solution for nebulization 3 ml inhalation QID PRN (Reason: shortness of breath) Qty: 90 0RF prednisone 50 mg tablet 50 mg PO DAILY Qty: 7 0RF No Action doxycycline hyclate 100 mg tablet 100 mg PO Q12H Qty: 14 0RF prednisone 50 mg tablet 50 mg PO DAILY Qty: 5 0RF benzonatate 200 mg capsule 200 mg PO TID PRN (Reason: cough) Qty: 30 0RF albuterol sulfate 2.5 mg /3 mL (0.083 %) solution for nebulization 2.5 mg inhalation Q4-6H PRN (Reason: shortness of breath or wheezing) Qty: 180 3RF bupropion HCl [Wellbutrin XL] 150 mg tablet extended release 24 hr 150 mg PO QAM Qty: 30 11RF budesonide-formoterol 160-4.5 mcg/actuation HFA aerosol inhaler See Rx Instructions .ROUTE .COMPLEX Qty: 10.2 5RF Dose Instruction: INHALE 2 PUFFS BY MOUTH EVERY 12 HOURS *RINSE AND SPIT AFTER EACH USE* Rx Instructions: INHALE 2 PUFFS BY MOUTH EVERY 12 HOURS *RINSE AND SPIT AFTER EACH USE* albuterol sulfate [Ventolin HFA] 90 mcg/actuation HFA aerosol inhaler 2 inh INHALATION Q4-6H PRN (Reason: shortness of breath or wheezing) Qty: 8.5 3RF nystatin 100,000 unit/gram powder 1 applic topical TID PRN (Reason: rash) Qty: 60 5RF escitalopram oxalate [Lexapro] 20 mg tablet 20 mg PO DAILY Qty: 90 3RF omeprazole 40 mg capsule,delayed release(DR/EC) 40 mg PO DAILY Qty: 90 3RF alprazolam 0.5 mg tablet 0.25 mg PO TID PRN (Reason: anxiety) Qty: 45 5RF cyclobenzaprine 5 mg tablet 5 mg PO TID PRN (Reason: muscle spasm) Qty: 30 0RF losartan 50 mg tablet 50 mg PO DAILY Qty: 90 3RF Follow-up/Referrals: Ashlyn Reddy NP [Primary Care Provider] - 1 Week
[2024-10-21 16:53] LABS: Reflex Lactic Acid Yes or No Add Lactic
[2024-10-21 17:18] LABS: Lactic Acid 2.1 mmol/L (0.7-2.0)
== END 2024-10-21 17:38 | disposition home or self-care (01) ==
PROVIDERS: Emergency Provider Emergency Medicine; PCP Nurse Practitioner Family
DX: J45.909 Unspecified asthma, uncomplicated (principal); I10 Essential (primary) hypertension; G47.33 Obstructive sleep apnea (adult) (pediatric); K21.9 Gastro-esophageal reflux disease without esophagitis; R73.03 Prediabetes; Z87.01 Personal history of pneumonia (recurrent); Z87.891 Personal history of nicotine dependence; Z86.0100 Personal history of colon polyps, unspecified; Z79.899 Other long term (current) drug therapy
CPT/HCPCS: 36415; 71046; 80053; 83605; 85025; 93005; 94640; 99283; J7512

== ENCOUNTER 2024-10-29 21:12 | Emergency (ER) | payer MEDICARE, SELFPAY ==
[2024-10-29 21:14] VITALS: BP 137/73; PULSE 82; RESP 19; TEMP 36.3; O2SAT 97
--- NOTE | 2024-10-29 21:42 | ED.EXTPRO ---
HPI - Extremity Problem General Chief complaint: Extremity Problem,Nontraumatic Stated complaint: L leg swelling, redness, warmth Time Seen by Provider: 10/29/24 21:26 Source: patient Mode of arrival: ambulatory Limitations: no limitations History of Present Illness HPI Narrative: This is a 69-year-old female who presents to the ED for chief complaint of left lower extremity redness and pain onset earlier today. Patient reports the left calf is more swollen than right. Reports that she has concern for possible blood clot. No history of DVT or PE. Not on any anticoagulant. Denies fevers, chills, nausea, vomiting. Related Data Allergies Allergy/AdvReac Type Severity Reaction Status Date / Time Aminoglycosides Allergy Severe SWELLING Verified 10/29/24 21:19 AND BLISTERS neomycin Allergy Severe SWELLING Verified 10/29/24 21:19 AND BLISTERS bacitracin Allergy Unknown Unknown Verified 10/29/24 21:19 enalapril Allergy Unknown Unknown Verified 10/29/24 21:19 lisinopril Allergy Unknown Unknown Verified 10/29/24 21:19 polymyxin B Allergy Unknown Unknown Verified 10/29/24 21:19 trazodone Allergy Unknown Unknown Verified 10/29/24 21:19 venlafaxine Allergy Unknown Unknown Verified 10/29/24 21:19 vilazodone Allergy Unknown Unknown Verified 10/29/24 21:19 Review of Systems Review of Systems: All systems as dictated in HPI [facility] Past Medical History Medical History (Updated 10/30/24 @ 00:06 by Jai Patel PA-C) Elevated TSH Right knee pain Low blood potassium Hx of colonic polyps Colon cancer screening Screening for osteoporosis Breast cancer screening Elevated serum creatinine BMI 45.0-49.9, adult Prediabetes Elevated fasting glucose GREGG on CPAP BMI 40.0-44.9, adult GERD (gastroesophageal reflux disease) Anxiety Pneumonia History of cataract Essential hypertension Former smoker Patient quit 35 years ago. She smoked for 10 years 1 pack per day History of asthma Rhinitis Seasonal allergic rhinitis Sleep disturbance Snoring Asthma Hypertension Surgical History Surgical History History of knee surgery Family History Family History Father Diabetes mellitus Patient's father is in good health Sibling Malignant neoplasm of prostate, Onset Age: 65 Mother Family history of lung cancer, Onset Age: 54 Social History Social History (Updated 10/12/24 @ 08:09 by Severiano Santos [facility]) Smoking packs per day: 0.5 Smoking cigarettes per day: 10.0 Years smoked: 7 Smoking pack-years: 3.50 Smoking status: Never smoker Tobacco type: cigarettes Second hand tobacco smoke exposure: No Smoking end date: 11/02/82 Additional smoking assessment comments: started smoking at age 14 Alcohol intake: never Substance use: never Substance use type: does not use Do You Feel Safe in your Home?: Yes Lack of Transportation: No Lack of Food: Never True Current Housing: I Have Housing Concerned About Future Housing: No Difficulty Paying Gas/Electric Bills: No Difficulty Paying for Meds: No Currently Unemployed: No Education: Trade/Vocational Certificate Difficulty w/ Childcare or Family Care: No Living arrangements: with family Spiritual care concerns: No Exam Narrative: GENERAL: Well-appearing, well-nourished, and in no acute distress. HEAD: Normocephalic, atraumatic. EYES: PERRLA and EOMI. ENT: Nares clear, no rhinorrhea or epistaxis. Mucous membranes moist. Oropharynx without tonsillar hypertrophy exudate or other lesions. NECK: Supple. No adenopathy or masses. CHEST: No respiratory distress. Clear to auscultation. No wheezes rales or rhonchi HEART: Regular rate and rhythm. No murmur heard. Normal peripheral pulses. ABDOMEN: Soft, nontender, nondistended, normal active bowel sounds. MSK: Anterior left lower leg with erythema, warmth and tenderness anteriorly. Mildly swollen compared to right leg. Neurovascularly intact distally. SKIN: See above NEURO: Alert and oriented x4. No focal deficits. PSYCH: Normal mood and affect. Course Vital Signs Vital signs: Vital Signs Temperature 97.3 F L 10/29/24 21:14 Pulse Rate 82 10/29/24 21:14 Respiratory Rate 19 10/29/24 21:14 Blood Pressure 137/73 10/29/24 21:14 Pulse Oximetry 97 10/29/24 21:14 Oxygen Delivery Room Air 10/29/24 21:14 Temperature 97.3 F L 10/29/24 21:14 Pulse Rate 82 10/29/24 21:14 Respiratory Rate 19 10/29/24 21:14 Blood Pressure 137/73 10/29/24 21:14 Pulse Oximetry 97 10/29/24 21:14 Oxygen Delivery Room Air 10/29/24 21:14 MDM - Extremity (Nontraumatic) MDM Narrative Medical decision making narrative: This is a 69-year-old female who presents to the ED for chief complaint of left lower leg swelling, redness onset today. Vitals are normal. Exam remarkable for the above. [place] [address]. D-dimer is negative for VTE. Do not have ultrasound available to gather a DVT study, however feel that her presentation is most likely consistent with cellulitis given the above. She has no immuno compromising condition. Vitals remained stable. She was given dose of pain meds here as well as 1st dose of cephalexin. Rx for Keflex given as well. Patient will be discharged in stable condition. Supportive measures discussed and return precautions given. Patient is understanding and agreeable with plan for discharge with PCP follow-up. Lab Data 10/29/24 22:52 10/29/24 22:52 Labs: Lab Results 10/29/24 Range/Units 22:52 WBC 14.2 H (4.5-10.0) K/mm3 RBC 4.67 (4.2-5.4) M/mm3 Hgb 14.4 (12.0-15.0) g/dL Hct 43.1 (37.0-47.0) % MCV 92.3 (80-100) fl MCH 30.8 (26-34) pg MCHC 33.4 (32-36) g/dl RDW 13.7 (11.5-14.5) % Plt Count 213 (150-375) k/mm3 MPV 9.3 (7.4-10.4) fl Immature Gran % (Auto) 0.8 H (0-0.5) % Neut % (Auto) 72.1 (45.5-73.1) % Lymph % (Auto) 22.1 (18.3-44.2) % [place] % (Auto) 4.7 (2.6-8.5) % Eos % (Auto) 0.2 (0-4.4) % Baso % (Auto) 0.1 L (0.2-1.2) % Lymph # (Auto) 3.14 (0.9-3.2) K/mm3 [place] # (Auto) 0.7 H (0.1-0.6) K/mm3 Eos # (Auto) 0.0 (0-0.3) K/mm3 Baso # (Auto) 0.0 (0.0-0.1) K/mm3 Abs Immat Gran (auto) 0.11 H (0.00-0.031) K/mm3 Absolute Neuts (auto) 10.3 H (1.3-6.7) K/mm3 Absolute Nucleated RBC 0.000 (0.0-0.012) K/mm3 Nucleated RBC % 0.0 (0.0-0.2) % PT 14.1 (11.1-14.7) Seconds INR 1.1 APTT 23.9 (22.3-36.8) Seconds D-Dimer < 0.27 (<0.48) ug/mL Sodium 134 L (137-145) mmol/L Potassium 3.7 (3.4-5.0) mmol/L Chloride 103 (98-107) mmol/L Carbon Dioxide 27 (22-30) mmol/L Anion Gap 4 (4-12) mmol/L BUN 16 (7-17) mg/dL Creatinine 0.90 (0.7-1.0) mg/dL Estim Creat Clear Calc Not Reportable Estimated GFR > 60 (59 - ) Glucose 113 H (65-110) mg/dL Calcium 8.9 (8.4-10.2) mg/dL Discharge Plan Discharge Clinical Impression: Cellulitis Patient Disposition: Home, Self-Care Condition: Stable Instructions: Antibiotic Form Additional Instructions: Your seen today for redness and swelling of the leg. Does appear they have cellulitis. Please take antibiotics as prescribed and follow-up with PCP on this issue. If you have any new or worsening symptoms please return to the ER for further evaluation. Patient Language: Taiwanese Prescriptions: New cephalexin 500 mg capsule 500 mg PO Q8H 7 Days Qty: 21 0RF No Action doxycycline hyclate 100 mg tablet 100 mg PO Q12H Qty: 14 0RF prednisone 50 mg tablet 50 mg PO DAILY Qty: 5 0RF benzonatate 200 mg capsule 200 mg PO TID PRN (Reason: cough) Qty: 30 0RF albuterol sulfate 2.5 mg /3 mL (0.083 %) solution for nebulization 2.5 mg inhalation Q4-6H PRN (Reason: shortness of breath or wheezing) Qty: 180 3RF ipratropium-albuterol 0.5 mg-3 mg(2.5 mg base)/3 mL solution for nebulization 3 ml inhalation QID PRN (Reason: shortness of breath) Qty: 90 0RF prednisone 50 mg tablet 50 mg PO DAILY Qty: 7 0RF bupropion HCl [Wellbutrin XL] 150 mg tablet extended release 24 hr 150 mg PO QAM Qty: 30 11RF budesonide-formoterol 160-4.5 mcg/actuation HFA aerosol inhaler See Rx Instructions .ROUTE .COMPLEX Qty: 10.2 5RF Dose Instruction: INHALE 2 PUFFS BY MOUTH EVERY 12 HOURS *RINSE AND SPIT AFTER EACH USE* Rx Instructions: INHALE 2 PUFFS BY MOUTH EVERY 12 HOURS *RINSE AND SPIT AFTER EACH USE* albuterol sulfate [Ventolin HFA] 90 mcg/actuation HFA aerosol inhaler 2 inh INHALATION Q4-6H PRN (Reason: shortness of breath or wheezing) Qty: 8.5 3RF nystatin 100,000 unit/gram powder 1 applic topical TID PRN (Reason: rash) Qty: 60 5RF escitalopram oxalate [Lexapro] 20 mg tablet 20 mg PO DAILY Qty: 90 3RF omeprazole 40 mg capsule,delayed release(DR/EC) 40 mg PO DAILY Qty: 90 3RF alprazolam 0.5 mg tablet 0.25 mg PO TID PRN (Reason: anxiety) Qty: 45 5RF cyclobenzaprine 5 mg tablet 5 mg PO TID PRN (Reason: muscle spasm) Qty: 30 0RF losartan 50 mg tablet 50 mg PO DAILY Qty: 90 3RF Follow-up/Referrals: Ashlyn Reddy NP [Primary Care Provider] - Time of Disposition: 00:06
[2024-10-29] MEDS: HYDROcodone/acetaminophen (*CRX) 5-325 MG TABLET 1 TAB PO (22:21)
[2024-10-29 23:13] LABS: Basophils Percent Auto 0.1 % (0.2-1.2); Eosinophils Percent Auto 0.2 % (0-4.4); Hematocrit 43.1 % (37.0-47.0); Hemoglobin 14.4 g/dL (12.0-15.0); Immature Granulocyte Absolute 0.11 K/mm3 (0.00-0.031); Immature Granulocyte Percent A 0.8 % (0-0.5); Lymphocytes Absolute Auto 3.14 K/mm3 (0.9-3.2); Lymphocytes Percent Auto 22.1 % (18.3-44.2); Mean Corpuscular HGB Conc 33.4 g/dl (32-36); Mean Corpuscular Hemoglobin 30.8 pg (26-34); Mean Corpuscular Volume 92.3 fl (80-100); Mean Platelet Volume 9.3 fl (7.4-10.4); Monocytes Absolute Auto 0.7 K/mm3 (0.1-0.6); Monocytes Percent Auto 4.7 % (2.6-8.5); Neutrophils Absolute Auto 10.3 K/mm3 (1.3-6.7); Neutrophils Percent Auto 72.1 % (45.5-73.1); Platelet Count Result 213 k/mm3 (150-375); Red Blood Count 4.67 M/mm3 (4.2-5.4); Red Cell Distribution Width 13.7 % (11.5-14.5); White Blood Count 14.2 K/mm3 (4.5-10.0)
[2024-10-29 23:25] LABS: Anion Gap 4 mmol/L (4-12); Blood Urea Nitrogen 16 mg/dL (7-17); Calcium 8.9 mg/dL (8.4-10.2); Carbon Dioxide 27 mmol/L (22-30); Chloride 103 mmol/L (98-107); Estimated Glomerular Filt Rate > 60; Glucose 113 mg/dL (65-110); Potassium 3.7 mmol/L (3.4-5.0); Sodium 134 mmol/L (137-145)
[2024-10-29 23:29] LABS: INR 1.1; Partial Thromboplastin Time 23.9 Seconds (22.3-36.8); Prothrombin Time 14.1 Seconds (11.1-14.7)
[2024-10-29 23:40] VITALS: BP 133/68; PULSE 71; RESP 14; O2SAT 98
[2024-10-30] LABS: D Dimer < 0.27 ug/mL (<0.48)
[2024-10-30] MEDS: CEPHALEXIN 500 MG CAPSULE PO (00:11)
== END 2024-10-30 00:15 | disposition home or self-care (01) ==
PROVIDERS: Emergency Provider Physician Assistant; PCP Nurse Practitioner Family
DX: L03.116 Cellulitis of left lower limb (principal); I10 Essential (primary) hypertension; J45.909 Unspecified asthma, uncomplicated; R73.03 Prediabetes; G47.33 Obstructive sleep apnea (adult) (pediatric); K21.9 Gastro-esophageal reflux disease without esophagitis; Z87.01 Personal history of pneumonia (recurrent); Z86.0100 Personal history of colon polyps, unspecified; Z87.891 Personal history of nicotine dependence
CPT/HCPCS: 36415; 80048; 85025; 85380; 85610; 85730; 99283; A9270

== ENCOUNTER 2024-11-03 15:54 | Outpatient (CLI) | payer MEDICARE, SELFPAY ==
--- NOTE | ~2024-11-03 | US_ITS ---
EXAMINATION: US venous doppler [facility] DATE: 11/03/2024 16:56 INDICATION: Left lower limb pain. TECHNIQUE: Grayscale ultrasound images without and with compression and Doppler ultrasound images of the left lower extremity veins were obtained. COMPARISON: Ultrasound 04/18/2024 FINDINGS: The visualized portions of left common femoral vein, profunda (deep) femoral vein, femoral vein, popl iteal vein, peroneal veins, posterior tibial veins, and greater saphenous vein outflow are patent. IMPRESSION: 1. No deep venous thrombosis. Reviewed, dictated and finalized at location A. [employer] [facility]
== END 2024-11-03 15:55 | disposition home or self-care (01) ==
PROVIDERS: PCP Nurse Practitioner Family; Visit Provider Nurse Practitioner Family
DX: R60.0 Localized edema (principal)
CPT/HCPCS: 93971

== ENCOUNTER 2025-03-20 09:49 | Outpatient (CLI) | payer MEDICARE, SELFPAY ==
--- OUTSIDE RECORDS SUMMARY | 2025-03-20 10:24 | XMS_ITS | Continuity of Care Document ---
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 No Information 0 Alice Dumont. [address] [facility] , [address], [place], [address], [place]. tel:[phone] Referring Provider: Julia Ernandez, [address], [place], [address]. tel:[phone] Office/outpat ient Visit, Est [facility], [address], [place], [place], [id number], tel:[phone] [facility] No Information 8-200 9 Ejnkins Julia. [address] , [address], [place], [place], [facility], [place]. tel:[phone] Office/outpat ient Visit, [facility], [address] [place] [address] [address], [place], [place], [id number], [place] tel:[phone] [facility] No Information March-0 8-200 9 Alice Dumont. [address] , [address], [place], [place], [facility], [place]. tel:[phone] Referring Provider: Julia Ernandez, [address], [place], [facility]. tel:[phone] [facility], [address] [place] [address] [address], [place], [id number], [place] tel:[phone] SEC [facility] [place] No Information 0 3-200 8 Alice Carrillo [address] , [address], [place], [facility], [place]. tel:[phone] Referring Provider: Julia Ernandez, [address], [place], [facility]. tel:[phone] Office/outpat ient Visit, [facility], [address] [place] [address] [address], [place], [place], [id number], [place] tel:[phone] SEC [facility] No Information 0 3200 8 Alice Carrillo [address] , [address], [place], [facility], [place]. tel:[phone] Office/outpat ient Visit, [facility], [address] [place] [address] [address], [place], [place], [id number], [place] tel:[phone] SEC [facility] No Information 3 0-200 7 Alice [address] , [address], [place], [facility], [place]. tel:[phone] Referring Provider: Michael [address] [place] [address], [place], [address]. tel:[phone] Office/outpat ient Visit, [facility], [address], [place], [place], [id number], [place] tel:[phone] SEC [facility] [place] No Information 5200 7 Alice Dumont. [address] [facility] , [address], [place], [address], [place]. tel:[phone] Referring Provider: Jazmin Wheeler[address] [facility] [place] [address], [place], [address]. tel:[phone] Family History Family Member Type Diagnosis Age [...]
--- OUTSIDE RECORDS SUMMARY | 2025-03-20 10:24 | XMS_ITS | Clinical Summary ---
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
--- OUTSIDE RECORDS SUMMARY | 2025-03-20 10:24 | XMS_ITS | Data Portability ---
Author Organization [place] [facility], Main Office Address [address] [place] [address] Care Team Providers Care Training Professional Name Role Phone ANNETTE TORRES Primary Care Provider Assessment Encounter Date Assessment Date Assessment LastModified by Organization Details LastModified Time 03/15/2024 03/15/2024 This note is dictated and transcribed by [employer]. Rn Staffing variances may occur. Despite proofreading, typographical errors may occur. Occasional wrong-word or 'jaajj-u-kpbx' substitutions may have occurred due to the inherent limitations of voice recording. Read the chart carefully and recognize, using context, where substitutions have occurred. Not available 03/15/2024 15:15:00 06/14/2024 06/14/2024 This note is dictated and transcribed by [employer]. Rn Staffing variances may occur. Despite proofreading, typographical errors may occur. Occasional wrong-word or 'tmdzg-u-qpsb' substitutions may have occurred due to the inherent limitations of voice recording. Read the chart carefully and recognize, using context, where substitutions have occurred. Not available 06/14/2024 13:40:22 09/13/2024 09/13/2024 This note is dictated and transcribed by [employer]. Rn Staffing variances may occur. Despite proofreading, typographical errors may occur. Occasional wrong-word or 'hwwni-o-nbme' substitutions may have occurred due to the inherent limitations of voice recording. Read the chart carefully and recognize, using context, where substitutions have occurred. Not available 09/13/2024 11:58:26 12/13/2024 12/13/2024 This note is dictated and transcribed by [employer]. Rn Staffing variances may occur. Despite proofreading, typographical errors may occur. Occasional wrong-word or 'tyxyk-p-rklz' substitutions may have occurred due to the inherent limitations of voice recording. Read the chart carefully and recognize, using context, where substitutions have occurred. Not available 12/13/2024 13:35:56 03/14/2025 03/14/2025 This note is dictated and transcribed by [employer]. Rn Staffing variances may occur. Despite proofreading, typographical errors may occur. Occasional wrong-word or 'nblpv-v-oink' substitutions may have occurred due to the inherent limitations of voice recording. Read the chart carefully and recognize, using context, where substitutions have occurred. Not available 03/14/2025 11:56:06 Plan of Treatment Reminders Order Date Submit Date Provider Last Modified By Organization Details Last Modified Time Details Appointments Establish ed Patient 15 2024 10:00A M Robel Thurman DPM Not available Not [...] Details Recorded Time Sprain of right ankle 70584475337 035787 Active 2021 Not Available [facility] 3 06:46:05 Injury of knee 303582616 Completed Not Available [facility] 3 06:46:06 Disorder of thyroid gland 67968978 Active 2020 Not Available [facility] 3 06:46:06 Pain in both feet 17061289202 089878 Active 2021 Not Available [facility] 3 06:46:06 Serum alkaline phosphata se above reference range 621311757 Active 2021 Not Available [facility] 3 06:46:06 Impacted cerumen 09117298 Completed Not Available [facility] 3 06:46:06 Asthma 797805630 Active Not Available [facility] 3 06:46:06 Boil of back 226861335 Completed 201611/03/2017 Not Available [facility] 3 06:46:06 Celluliti s and abscess of back 269723485 Completed 201611/03/2017 Not Available [facility] 3 06:46:07 Closed fracture proximal humerus, greater tuberosit y 826588496 Active Not Available [facility] 3 06:46:07 Feeling stressed 701961059 Completed Not Available [facility] 3 06:46:07 Foot callus 604462318 Active 2021 Not Available [facility] 3 06:46:07 Gastroeso phageal reflux disease 553464063 Active Not Available [facility] 3 06:46:07 Low back pain 385828350 Active Not Available [facility] 3 06:46:07 Unable to cut own toenails 214547161 Active 2021 Not Available [facility] 3 06:46:07 History of SARS-CoV- 2 90442579376 3375684 Active 2020 Not Available [facility] 3 06:46:08 Current tear of medial cartilage AND/OR meniscus of knee Active Not Available [facility] 3 06:46:08 Knee pain Active Not Available [facility] 3 06:46:08 Pain in right foot 36920516339 9107 Active 2021 Not Available [facility] 3 06:46:08 Tendiniti s of left posterior tibial tendon 59522886152 9100 Active 2021 Not Available [facility] 3 06:46:08 Tendiniti s of right posterior tibial tendon 72686259101 9102 Active 2021 Not Available [facility] 3 06:46:08 Bronchiti s 64620480 Completed Not Available [facility] 3 06:46:09 Depressiv e disorder 98845694 Active Not Available [facility] 3 06:46:09 Sinusitis 45016825 Completed Not Available [facility] 3 06:46:09 Hypertens jennifer disorder 34719881 Active Not Available [facility] 3 06:46:09 Osteoarth ritis 636195092 Active 2016 Not Available [facility] 3 06:46:09 Body mass index 40+ - severely obese 614086511 Active 2020 Not Available [facility] 3 06:46:10 Obesity 838047803 Active Not Available [facility] 3 06:46:10 Seasonal allergy 081863950 Active Not Available [facility] 3 06:46:10 Anxiety 49594115 Active Not Available [facility] 3 06:46:10 Dysuria 73941498 Completed Not Available [facility] 3 06:46:11 Acute ankle pain 53870061102 105 Active 2021 Not Available [facility] 3 06:46:11 Peroneal tendiniti s 61764708 Active 2021 Not Available [facility] 3 06:46:11 Fracture of humerus 45101732 Active Not Available [facility] 3 06:46:11 Urinary tract infectiou s disease 82396614 Completed Not Available [facility] 3 06:46:11 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 4 13:40:00 Callosity on toe 794847094 Active 2023 Robel Thurman DPM [address], [address], [place], [address] , [facility] [employer] [facility] 4 13:40:05 Hammer toe 996983639 Active 2023 Robel Thurman DPM [address], [address], [place], [address] , [facility] [employer] [facility] [employer] [facility] [employer] 4 13:40:49 Hammer toe 310878715 Active 2023 Robel Thurman DPM [address], [address], [place], [address] , [facility] [employer] [facility] [employer] 12:28:17 Problem Notes None recorded. Procedures Surgical History Date Name Laterality Status Provider Name and Address Organization Details Recorded Time 03/14/20 25 Nail Debridement completed Robel Thurman DPM [address], [address], [place], [address], [facility] [employer] 03/14/2025 11:55:31 03/14/20 25 Callus Debridement 2-4 completed Robel Thurman DPM [address], [address], [place], [address], [facility] [employer] [facility] [employer] 03/14/2025 11:55:22 12/13/19 25 Nail Debridement completed Robel Thurman DPM [address], [address], [place], [address], [facility] [employer] [facility] 12/13/2024 13:36:50 12/13/19 25 Callus Debridement, One completed Robel Thurman DPM [address], [address], [place], [address], [facility] [employer] [facility] 12/13/2024 13:36:27 09/13/20 24 Nail Debridement completed Robel Thurman DPM [address], [address], [place], [address], [facility] [employer] 09/13/2024 12:28:07 09/13/20 24 Callus Debridement, One completed Robel Thurman DPM [address], [address], [place], [address], [facility] 09/13/2024 12:27:58 06/14/20 24 Nail Debridement completed Robel Thurman DPM [address], [address], [place], [address], [facility] 06/14/2024 13:39:35 06/14/20 24 Callus Debridement 2-4 completed Robel Thurman DPM [address], [address], [place], [address], [facility] 06/14/2024 13:39:39 03/15/20 24 Nail Debridement completed Robel Thurman DPM [address], [address], [place], [address], [facility] 03/15/2024 15:12:16 03/15/20 24 Callus Debridement 2-4 completed Robel Thurman DPM [address], [address], [place], [address], [facility] 03/15/2024 15:12:08 12/15/19 24 Nail Debridement completed Robel Thurman DPM [address], [address], [place], [address], [facility] 12/21/2023 09:06:12 12/15/19 24 Callus Debridement 2-4 completed Robel Thurman DPM [address], [address], [place], [address], [facility] 12/21/2023 09:06:02 05/12/20 23 Nail Debridement completed Robel Thurman DPM [address], [place], [address], [facility] 05/12/2023 14:33:00 05/12/20 23 Callus Debridement 2-4 completed Robel Thurman DPM [address], [address], [place], [address], [facility] [employer] [facility] 05/12/2023 14:33:05 02/06/20 23 Nail Debridement completed Robel Thurman DPM [address], [address], [place], [address], [facility] [employer] [facility] 02/27/2023 15:11:10 02/06/20 23 Callus Debridement, One completed Robel Thurman DPM [address], [place], [address], [facility] [employer] [facility] 02/27/2023 15:11:03 Knee Replacement completed Not Available [facility] 12/31/2022 06:40:47 Imaging Results None recorded. Procedure Notes None recorded. Medical Equipment None Reported. Allergies Allergen ID Allergen Name Allergen Category Reaction Reaction Severity Criticality Documentation Date Start Date Code Code System Note Provider Name and Address Organization Details Recorded Time 68081 Viibryd medicatio n diarrhea Not available Not available 12/31/2022 33265 73 RxNorm Not Available [facility] 3 06:54:24 78842 Vasotec medicatio n cough Not available Not available 12/31/2022 74689 1 RxNorm Not Available [facility] 3 06:54:24 36131 trazodone medicatio n other Not available Not available 12/31/2022 46982 RxNorm reflu x Not Available [facility] 3 06:54:24 52627 Pristiq medicatio n Not available Not available Not available 12/31/2022 82349 2 RxNorm Not Available [facility] 3 06:54:24 45735 bacitraci n / neomycin / polymyxin B medicatio n Not available Not available Not available 12/31/2022 14554 9 RxNorm Not Available [facility] 3 06:54:24 31203 lisinopri l medicatio n other Not available Not available 12/31/2022 96831 RxNorm tired Not Available [facility] 3 06:54:25 77112 Levaquin medicatio n nausea Not available Not available 12/31/2022 88415 2 RxNorm Not Available [facility] 3 06:54:25 56757 Effexor medicatio n Not available Not available Not available 12/31/2022 54860 2 RxNorm Not Available [facility] 3 06:54:25 Medications Name Sig Start Date Stop Date Status Note LastModified by Organization Details LastModified Time losartan 50 mg tablet TAKE 1 TABLET BY MOUTH EVERY DAY active Not Available Not Available No t Available celecoxib 200 mg capsule 1 cap po daily 02/15 completed Not Available Not Available Not Available latanopros t 0.005 % eye drops INSTILL 1 DROP INTO BOTH EYES AT BEDTIME active Not Available Not Available No t Available nystatin 100,000 unit/mL oral suspension SWISH 5 ML BY MOUTH LONG POSSIBLE 4 TIMES DAILY THEN SWALLOW X7 DAYS active Not Available Not Available No [...] soln INHALE THE CONTENTS OF 1 VIAL VIA NEBULIZE R 4 TIMES DAILY FOR SHORTNES S OF BREATH active Not Available Not Available No t Available clindamyci n HCl 300 mg capsule [...] TAKE 1 TABLET DAILY FOR 4 DAYS DIRECTED active Not Available Not Available No t Available aspirin 325 mg tablet TAKE 1 [...] CAPSULE BY MOUTH THREE TIMES A DAY NEEDED FOR COUGH active Not Available Not Available No t Available hydrocodon e 5 mg-acetami nophen 325 [...] mg tablet TAKE 2 TABLETS BY MOUTH DAILY active Not Available Not Available No t Available travoprost 0.004 % eye drops INSTILL [...] xazole 800 mg-trimeth oprim 160 mg tablet TAKE 1 TABLET BY MOUTH EVERY 12 HOURS active Not Available Not Available No t Available hydrocodon e 10 mg-acetami nophen 325 [...] Take by injectio n route. 10/10 completed [facility]# [id number] Not Available Not Available Not Available oxycodone- acetaminop hen 5 mg-325 mg tablet TAKE 1 TO 2 TABLETS BY MOUTH EVERY 4 TO 6 HOURS NEEDED. (INSURAN CE MAX = 6 TABS/24 HOURS) 06/05 completed Not Available Not Available Not Available alprazolam 0.5 mg tablet TAKE 1/2 TABLET BY MOUTH 3 TIMES A DAY NEEDED FOR ANXIETY active [...] capsule TAKE 1 CAPSULE BY MOUTH EVERY 8 HOURS FOR 7 DAYS active Not Available Not Available No t Available erythromyc in 5 mg/gram (0.5 %) eye ointment active Not Available Not Available Not Available esomeprazo le magnesium 40 mg capsule,de layed release TAKE 1 CAPSULE DAILY active Not Available Not Available No t Available nitrofuran toin macrocryst al 100 mg capsule active Not Available Not Available Not Available prednisone 50 mg tablet TAKE 1 TABLET BY MOUTH DAILY FOR 7 DAYS active Not Available Not Available No t Available Tobrex 0.3 % eye ointment active [...] Not Available Not Available No t Available phentermin e 37.5 mg capsule Take [...] Available cyclobenza hannah 5 mg tablet TAKE 1 TABLET BY MOUTH THREE TIMES A DAY NEEDED FOR MUSCLE SPASM active Not Available Not Available No t [...] mcg/actuat ion aerosol inhaler INHALE 2 PUFFS BY MOUTH EVERY 12 HOURS *RINSE AND SPIT AFTER EACH USE* active Not Available Not Available No t [...] Available Klayesta 100,000 unit/gram topical powder APPLY TOPICALL Y THREE TIMES A DAY NEEDED FOR RASH active [...] 98 % 131 mm[Hg] 70 mm[Hg] Meredith Patricia [facility] 4 14:48:52 Date Recorded Body height Body mass index (BMI) Body weight Heart rate Respiratory rate Body temperature Oxygen saturation Oxygen saturation in Arterial blood by Pulse oximetry Systolic blood pressure Diastolic blood pressure Provider Name and Address Organization Details Last Updated DateTime 4 149.86 cm 48.5 kg/m2 387939. 17 g 70 /min 14 /min 97.1 [degF] 98 % 98 % 120 mm[Hg] 76 mm[Hg] Janie Kearneynshaw [facility] [employer] [facility] 4 12:25:55 Date Recorded Body height Body mass index (BMI) Body weight Heart rate Respiratory rate Oxygen saturation Oxygen saturation in Arterial blood by Pulse oximetry Systolic blood pressure Diastolic blood pressure Provider Name and Address Organization Details Last Updated DateTime 4 149.86 cm 48.5 kg/m2 077970. 17 g 82 /min 14 /min 98 % 98 % 133 mm[Hg] 79 mm[Hg] Meredith Cochran [facility] [employer] [facility] 4 11:55:11 Date Recorded Body height Body mass index (BMI) Body weight Heart rate Body temperature Oxygen saturation Oxygen saturation in Arterial blood by Pulse oximetry Systolic blood pressure Diastolic blood pressure Provider Name and Address Organization Details Last Updated DateTime 5 149.86 cm 48.5 kg/m2 676281. 17 g 95 /min 97.9 [degF] 97 % 97 % 122 mm[Hg] 69 mm[Hg] Alba Diaz [facility] [employer] [facility] 5 11:48:44 Date Recorded Body height Body mass index (BMI) Body weight Heart rate Respiratory rate Oxygen saturation Oxygen saturation in Arterial blood by Pulse oximetry Systolic blood pressure Diastolic blood pressure Provider Name and Address Organization Details Last Updated DateTime 5 149.86 cm 48.5 kg/m2 704399. 17 g 96 /min 14 /min 98 % 98 % 121 mm[Hg] 76 mm[Hg] Meredith Cochran [facility] [employer] [facility] 5 11:37:37 Social History Question Answer Notes LastModified by Organizat ion Details LastModified Time Tobacco Smoking Status Never Smoker Not Available [facility] 12/31/2022 06:40:06 What Is Your Level Of Caffeine Consumption? Moderate [id number] Information not available 12/31/2022 In The 14 Days Before Symptom Onset, Have You Had Close Contact With A Laboratory-confirm ed COVID-19 While That Case Was Ill? No [id number] Information not available 12/31/2022 In The 14 Days Before Symptom Onset, Have You Had Close Contact With A Person Who Is Under Investigation For COVID-19 While That Person Was Ill? No [id number] Information not available 12/31/2022 What Type Of Diet Are You Following? REGULAR [id number] Information not available 12/31/2022 What Was The Date Of Your Most Recent Tobacco Screening? 01/10/2022 [id number] Information not available 12/31/2022 Has Tobacco Cessation Counseling Been Provided? No [id number] Information not available 12/31/2022 Have You Recently Traveled Abroad? No [id number] Information not available 12/31/2022 Do You Have Any Dietary Restrictions? No [id number] Information not available 12/31/2022 Sex: Unknown Functional Status 192836|[id number]||2025-03-22 06:39:00|CT_ITS|TRIP|Imaging|[id number]|"CT Scan of the Chest without Contrast: Clinical Indication: Interstitial pulmonary disease Technique: Contiguous sections were acquired throughout the chest without intravenous contrast. Dose reduction technique was used on this scan by utilizing automated exposure control and iterative recon struction technique. The dose-length product (DLP) was 570.40 mGy-cm. COMPARISON: 03/18/2024 Findings: There is no evidence of any significant mediastinal, hilar or axillary lymphadenopathy. Mild coronary artery calcification are present. Small hiatal hernia present. There is no evidence of pleural or pericardial effusion. Possible minimal bibasilar subpleural reticulation versus hypoventilatory change. Images through the upper abdomen reveal no abnormalities. Impression: Possible minimal bibasilar subpleural reticulation versus hypoventilatory/atelectatic change. Small hiatal hernia. Reviewed, dictated and finalized at location . Impression: Possible minimal bibasilar subpleural reticulation versus hypoventilatory/atele ctatic change. Small hiatal hernia. "
== END 2025-03-20 09:50 | disposition home or self-care (01) ==
PROVIDERS: PCP Nurse Practitioner Family; Visit Provider Internal Medicine Pulmonary Disease
DX: K44.9 Diaphragmatic hernia without obstruction or gangrene (principal); J84.9 Interstitial pulmonary disease, unspecified
CPT/HCPCS: 71250

== ENCOUNTER → 2025-05-02 09:32 | Outpatient (CLI) | payer MEDICARE, SELFPAY ==
--- NOTE | ~2025-05-02 | XR_ITS ---
Left Knee Technique: AP, lateral, and sunrise views were obtained. Clinical History: Pain Findings: No fracture or dislocation is seen. Left knee arthroplasty in place.. Soft tissues are unre markable. No joint effusion is seen. Impression: No acute abnormality. Left knee arthroplasty in place. Reviewed, dictated and finalized at location . Impression: No acute abnormality. Left knee arthroplasty in place.
--- NOTE | ~2025-05-02 | XR_ITS ---
Right Knee Technique: AP, lateral, and oblique views were obtained. Clinical History: Pain Findings: No fracture or dislocation is seen. Osseous alignment is anatomic. Joint spaces are preserv ed without degenerative or erosive change. Soft tissues are unremarkable. No joint effusion is seen. Impression: Unremarkable right knee radiographs. Reviewed, dictated and finalized at location . Impression: Unremarkable right knee radiographs.
--- OUTSIDE RECORDS SUMMARY | 2025-05-02 09:45 | XMS_ITS | Clinical Summary ---
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
== END ==
LOC: EXPTRAD 09:34
PROVIDERS: PCP Family Medicine; Visit Provider Nurse Practitioner Family
DX: M25.561 Pain in right knee (principal); M25.562 Pain in left knee; Z96.652 Presence of left artificial knee joint
CPT/HCPCS: 73564

== ENCOUNTER 2025-10-27 12:52 | Outpatient (CLI) | payer MEDICARE, SELFPAY ==
--- NOTE | ~2025-10-27 | MM_ITS ---
EXAMINATION: MM screening cecelia BI w nancy HISTORY: Screening TECHNIQUE: Craniocaudal and mediolateral oblique 3-D tomosynthesis images were obtained and synthetic 2-D images were generated. CAD analysis was submitted and interpreted. COMPARISON: No prior mammogram is available for comparison at this institution. BREAST PARENCHYMAL COMPOSITION: Not Dense: The breasts are almost entirely fatty. FINDINGS: There is no evidence of suspicious mass, calcification, or architectural distortion to suggest malignancy in either breast. There has been no suspicious interval change. IMPRESSION: 1. No mammographic evidence of malignancy. 2. Recommend routine screening mammography in one year. BI-RADS Category 1: Negative Reviewed, dictated and finalized at location [facility]
== END 2025-10-27 12:53 | disposition home or self-care (01) ==
LOC: MICIMG 12:52
PROVIDERS: PCP Nurse Practitioner Family; Visit Provider Nurse Practitioner Family
DX: Z12.31 Encounter for screening mammogram for malignant neoplasm of breast (principal)
CPT/HCPCS: 77063; 77067